=== PATIENT | female | born 1980 | race Caucasian/White ===

== ENCOUNTER 2016-04-07 16:35 | Inpatient (IN) | payer MEDICARE ==
[2016-04-07] MEDS ORDERED: APRESOLINE IV ONE (17:38)
[2016-04-07] MEDS ORDERED: MORPHINE IV ONE ×2 (17:38→19:43)
[2016-04-07] MEDS ORDERED: ZOFRAN IV ONE (17:38)
--- NOTE | 2016-04-07 17:38 | Emergency Department Report ---
ED Chest Pain HPI - General Chief Complaint: Chest Pain Stated Complaint: CHEST PAIN Time Seen by Provider: 04/07/16 17:32 Source: patient, EMS Mode of arrival: Stretcher Limitations: Physical Limitation - History of Present Illness Initial Comments: Patient here reports she has some nausea and vomited last weeks also reported chest pain times one week. She had similar episode in the past. She denies any fever or chills. She reports nausea today. Blood pressure is elevated and patient since she is on clonidine work elevated blood pressure but she has not been able to take it because she's been vomiting. She reports chest pain to mid chest radiating to left chest area without shortness of breath. Pain at 10 out of 10 and feels sharp and stabbing. She also reports that she has some dizziness. Patient has chronic pain to her back and abdomen. Reports that she is on oxycodone. She is also on medication for chronic not nausea and acid reflux. Denies any urinary burning frequency or urgency. Denies any history of heart disease. Blood pressure is elevated at 198/147. MD Complaint: chest pain Onset/Timin -: week(s) Onset: during rest Pain Radiation: none Severity: severe Severity scale (0 -10): 10 Quality: sharp Consistency: intermittent Improves With: nothing Worsens With: nothing Context: other (unknown) re: nausea, vomting, dyspnea. denies: diaphoresis, sense of impending doom Other Symptoms: denies: cough, fever, syncope, rash, acid taste in mouth, leg swelling, palpitations, burping Treatments Prior to Arrival: none Aspirin use within the Past 7 Days: (0) No - Related Data On Oral Contraceptives: No Allergies Allergy/AdvReac Type Severity Reaction Status Date / Time amoxicillin Allergy Anaphylaxis Verified 04/07/16 17:04 enalapril Allergy Anaphylaxis Verified 04/07/16 17:04 ibuprofen AdvReac Unknown Verified 04/07/16 17:04 JAGRUTI score - Jagruti Score Age > 65: (0) No Aspirin use within the Past 7 Days: (0) No 3 or more CAD Risk Factors: (0) No 2 or more Angina events in past 24 hrs: (0) No Known CAD with more than 50% Stenosis: (0) No Elevated Cardiac Markers: (0) No ST Deviation Greater than 0.5mm: (0) No JAGRUTI Score: 0 ED Review of Systems ROS: Stated complaint: CHEST PAIN Other details as noted in HPI Comment: All other systems reviewed and negative Constitutional: denies: chills, fever Eyes: denies: eye pain, eye discharge ENT: denies: ear pain, throat pain, congestion Respiratory: no symptoms reported Cardiovascular: chest pain. denies: palpitations, dyspnea on exertion, edema, syncope Gastrointestinal: nausea. denies: abdominal pain, vomiting, diarrhea, constipation, hematemesis, melena, hematochezia Musculoskeletal: denies: back pain, arthralgia Skin: denies: rash Neurological: denies: headache ED Past Medical Hx - Past Medical History Previous Medical History?: Yes Hx Hypertension: Yes Hx CVA: Yes Hx Seizures: Yes Additional medical history: chronic pain - Surgical History Past Surgical History?: Yes Additional Surgical History: weight loss surgery - Family History Family history: hypertension - Social History Smoking Status: Never Smoker Substance Use Type: None ED Physical Exam - General Limitations: Physical Limitation General appearance: alert, in no apparent distress - Head Head exam: Present: atraumatic, normocephalic, normal inspection - Eye Eye exam: Present: normal appearance, PERRL, EOMI. Absent: periorbital swelling , periorbital tenderness - ENT ENT exam: Present: normal exam, normal orophraynx, mucous membranes moist, TM's normal bilaterally, normal external ear exam - Neck Neck exam: Present: normal inspection, full ROM. Absent: tenderness, meningismus, lymphadenopathy - Respiratory Respiratory exam: Present: normal lung sounds bilaterally. Absent: respiratory distress, chest wall tenderness - Cardiovascular Cardiovascular Exam: Present: normal rhythm, tachycardia, normal heart sounds - Expanded Cardiovascular Exam Expanded Peripheral pulses: 2+: Radial (R), Radial (L), Posterior Tibialis (R), Posterior Tibialis (L), Dorsalis Pedis (R), Dorsalis Pedis (L) - GI/Abdominal GI/Abdominal exam: Present: soft, normal bowel sounds. Absent: distended, tenderness, guarding, rebound, rigid, organomegaly, mass, bruit - Extremities Exam Extremities exam: Present: normal inspection, full ROM, normal capillary refill. Absent: tenderness, pedal edema, joint swelling, calf tenderness - Back Exam Back exam: Present: normal inspection, full ROM. Absent: tenderness, CVA tenderness (R), CVA tenderness (L), muscle spasm, paraspinal tenderness, vertebral tenderness, rash noted - Neurological Exam Neurological exam: Present: alert, oriented X3, normal gait, reflexes normal. Absent: motor sensory deficit - Psychiatric Psychiatric exam: Present: normal affect, normal mood - Skin Skin exam: Present: warm, dry, intact, normal color. Absent: rash ED Course Vital Signs 04/07/16 04/07/16 04/07/16 16:55 16:57 17:00 Temperature 98.6 F Pulse Rate 124 H Respiratory 18 Rate Blood Pressure 198/147 188/147 Blood Pressure [Right] O2 Sat by Pulse 100 97 Oximetry 04/07/16 04/07/16 04/07/16 17:10 17:20 17:30 Temperature Pulse Rate 116 H 119 H 128 H Respiratory 23 23 16 Rate Blood Pressure 188/147 176/136 171/132 Blood Pressure [Right] O2 Sat by Pulse 97 98 97 Oximetry 04/07/16 04/07/16 04/07/16 18:00 18:02 18:03 Temperature Pulse Rate 117 H 128 H Respiratory 19 16 Rate Blood Pressure 187/136 171/132 Blood Pressure [Right] O2 Sat by Pulse 98 Oximetry 04/07/16 04/07/16 04/07/16 18:07 18:30 19:05 Temperature 98.7 F Pulse Rate 136 H 135 H Respiratory 16 25 H 20 Rate Blood Pressure 117/76 Blood Pressure 114/73 [Right] O2 Sat by Pulse 97 99 99 Oximetry - Reevaluation(s) Reevaluation #1: 04/07/16 18:22 After evaluation, patient stable no change in physical findings. Reevaluation #2: 04/07/16 20:01 Patient received morphine in 4 mg increments IV for a total of 8 mg for generalized pain. She also was started on IV fluid at 250 cc an hour. Reevaluation #3: 04/07/16 22:01 Patient stable condition. Hospitalist following patient ED Medical Decision Making - Lab Data Result diagrams: 04/07/16 17:53 04/07/16 17:53 Lab Results 04/07/16 04/07/16 04/07/16 Range/Units 17:40 17:53 17:53 WBC 9.0 (4.5-11.0) K/mm3 RBC 4.04 (3.65-5.03) M/mm3 Hgb 9.0 L (10.1-14.3) gm/dl Hct 29.6 L (30.3-42.9) % MCV 73 L (79-97) fl MCH 22 L (28-32) pg MCHC 30 (30-34) % RDW 20.8 H (13.2-15.2) % Plt Count 545 H (140-440) K/mm3 Lymph % (Auto) 10.9 L (13.4-35.0) % [place] % (Auto) 5.6 (0.0-7.3) % Eos % (Auto) 0.1 (0.0-4.3) % Baso % (Auto) 0.5 (0.0-1.8) % Lymph # 1.0 L (1.2-5.4) K/mm3 [place] # 0.5 (0.0-0.8) K/mm3 Eos # 0.0 (0.0-0.4) K/mm3 Baso # 0.0 (0.0-0.1) K/mm3 Seg Neutrophils % 82.9 H (40.0-70.0) % Seg Neutrophils # 7.4 (1.8-7.7) K/mm3 Sodium 131 L (137-145) mmol/L Potassium 3.7 (3.6-5.0) mmol/L Chloride 91.7 L (98-107) mmol/L Carbon Dioxide 27 (22-30) mmol/L Anion Gap 16 mmol/L BUN 13 (7-17) mg/dL Creatinine 0.7 (0.7-1.2) mg/dL Estimated GFR > 60 ml/min BUN/Creatinine Ratio 18.57 % Glucose 90 (65-100) mg/dL Calcium 8.7 (8.4-10.2) mg/dL Total Bilirubin (0.1-1.2) mg/dL Direct Bilirubin (0-0.2) mg/dL Indirect Bilirubin mg/dL AST (5-40) units/L ALT (7-56) units/L Alkaline Phosphatase (35-129) units/L Troponin T < 0.010 (0.00-0.029) ng/mL Total Protein (6.3-8.2) g/dL Albumin (3.9-5) g/dL Albumin/Globulin Ratio % TSH 2.010 (0.270-4.200) mlU/mL Free T4 1.15 (0.76-1.46) ng/dL HCG, Qual (Negative) 04/07/16 04/07/16 Range/Units 17:53 17:53 WBC (4.5-11.0) K/mm3 RBC (3.65-5.03) M/mm3 Hgb (10.1-14.3) gm/dl Hct (30.3-42.9) % MCV (79-97) fl MCH (28-32) pg MCHC (30-34) % RDW (13.2-15.2) % Plt Count (140-440) K/mm3 Lymph % (Auto) (13.4-35.0) % [place] % (Auto) (0.0-7.3) % Eos % (Auto) (0.0-4.3) % Baso % (Auto) (0.0-1.8) % Lymph # (1.2-5.4) K/mm3 [place] # (0.0-0.8) K/mm3 Eos # (0.0-0.4) K/mm3 Baso # (0.0-0.1) K/mm3 Seg Neutrophils % (40.0-70.0) % Seg Neutrophils # (1.8-7.7) K/mm3 Sodium (137-145) mmol/L Potassium (3.6-5.0) mmol/L Chloride (98-107) mmol/L Carbon Dioxide (22-30) mmol/L Anion Gap mmol/L BUN (7-17) mg/dL Creatinine (0.7-1.2) mg/dL Estimated GFR ml/min BUN/Creatinine Ratio % Glucose (65-100) mg/dL Calcium (8.4-10.2) mg/dL Total Bilirubin 0.7 (0.1-1.2) mg/dL Direct Bilirubin 0.2 (0-0.2) mg/dL Indirect Bilirubin 0.5 mg/dL AST 17 (5-40) units/L ALT 18 (7-56) units/L Alkaline Phosphatase 108 (35-129) units/L Troponin T (0.00-0.029) ng/mL Total Protein 6.4 (6.3-8.2) g/dL Albumin 3.6 L (3.9-5) g/dL Albumin/Globulin Ratio 1.3 % TSH (0.270-4.200) mlU/mL Free T4 (0.76-1.46) ng/dL HCG, Qual Negative (Negative) - EKG Data -: EKG Interpreted by Me Rate: tachycardia - EKG Data Interpretation: no acute changes - Radiology Data Radiology results: pending (chest x-rays) - Medical Decision Making I collaborated with Dr. Martins on patient presentation and management in emergency room. It was decided the patient will be admitted under hospitalist service. ED Course:Patient presents to emergency room with complaints of chest pain. She said this is having chest pain feels and he went several times. She reports that she had ultrasound of her heart rate was normal and platelets to her gastric bypass surgery she had cardiac stress test versus was normal. This was in 2013. Patient reports that her heart rate is was elevated and her blood pressure has been elevated because she is able to keep any food down in her stomach. She says she takes clonidine for hypertension. She says she has chronic nausea for which she is taking Zofran and she is taking Protonix for acid reflux. I discussed with patient her lab work which reveals mild anemia and patient said that she has anemia from her last surgery, vomiting lower 3.6, troponin was normal TSH and free T4 were within normal limits and negative . I discussed with patient that she will be admitted for chest pain and tachycardia. She is in agreement with admission. Chest x-ray is pending and hospitalist swelling patient. Patient was given IV fluid normal saline 1 L , hydralazine 20 mg IV, morphine 8 mg IV in 4 mg increments. She was also given Zofran 4 mg IV. She forcefully for pain. Critical care attestation.: If time is entered above; I have spent that time in minutes in the direct care of this critically ill patient, excluding procedure time. ED Disposition Clinical Impression: Nausea alone, Tachycardia Chest pain Qualifiers: Chest pain type: unspecified Qualified Code(s): R07.9 - Chest pain, unspecified Hypertension Qualifiers: Hypertension type: essential hypertension Qualified Code(s): I10 - Essential ( primary) hypertension Anemia Qualifiers: Anemia type: unspecified type Qualified Code(s): D64.9 - Anemia, unspecified Disposition: OP ADMITTED IP TO THIS HOSP Is pt being admited?: Yes Does the pt Need Aspirin: No Condition: Stable Instructions: Chest Pain (ED), Hypertension (ED)
[2016-04-07] MEDS ORDERED: NACL 0.9% 1000 ML 1,000 ML IV ONE (17:39)
[2016-04-07 18:25] LABS: Anion Gap 16 mmol/L; BUN/Creatinine Ratio 18.57; Blood Urea Nitrogen 13 mg/dL (7-17); Calcium 8.7 mg/dL (8.4-10.2); Carbon Dioxide 27 mmol/L (22-30); Chloride 91.7 mmol/L (98-107); Glucose 90 mg/dL (65-100); Potassium 3.7 mmol/L (3.6-5.0); Sodium 131 mmol/L (137-145)
[2016-04-07 18:26] LABS: Basophils % (Auto) 0.5 % (0.0-1.8); Eosinophils % (Auto) 0.1 % (0.0-4.3); Hematocrit 29.6 % (30.3-42.9); Mean Corpuscular HGB Conc 30 % (30-34); Mean Corpuscular Volume 73 fl (79-97); Platelet Count 545 K/mm3 (140-440); Red Blood Count 4.04 M/mm3 (3.65-5.03)
[2016-04-07 18:29] LABS: Mean Corpuscular Hemoglobin 22 pg (28-32); Red Cell Distribution Width 20.8 % (13.2-15.2)
[2016-04-07 19:19] LABS: Albumin 3.6 g/dL (3.9-5); Albumin/Globulin Ratio 1.3 %; Bilirubin,Direct 0.2 mg/dL (0-0.2); Bilirubin,Indirect 0.5 mg/dL; Bilirubin,Total 0.7 mg/dL (0.1-1.2); Total Protein 6.4 g/dL (6.3-8.2)
[2016-04-07] MEDS ORDERED: APRESOLINE IV PRN (22:59)
[2016-04-07] MEDS ORDERED: TYLENOL PO PRN (23:00)
[2016-04-07] MEDS ORDERED: MILK OF MAGNESIA PO PRN (23:00)
[2016-04-07] MEDS ORDERED: SODIUM CHLORIDE FLUSH SYRINGE 10 ML IV PRN (23:00)
[2016-04-07] MEDS ORDERED: DULCOLAX PR PRN (23:00)
[2016-04-08] MEDS: MORPHINE IV PRN ×4 (01:31→16:08)
[2016-04-08 02:20] LABS: Creatine Kinase MB 1.3 ng/mL (0.0-4.0)
--- NOTE | 2016-04-08 02:21 | History and Physical Report ---
History of Present Illness Date of examination: 04/08/16 Date of admission: 04/07/16 20:23 History of present illness: 35-year-old woman history of hypertension, CVA, seizure, chronic pain comes emergency room with complaint of chest pain. Pain is in the epigastric area ongoing 4 days which she describes as a sharp pain, constant, intensity is 7/10 , no radiation and she cannot identify exacerbating or alleviating factors. She denies shortness of breath, diaphoresis or palpitation, recent travel, OCP, admits to nausea vomiting Patient denies cough, abdominal pain, hematochezia, dysuria, frequency, focal weakness, dysarthria, fever chills, polydipsia polyuria, hot or cold intolerance , easy bruisability, or rash or bleeding from mucosal membrane, rhinorrhea, epistaxis, earache, tinnitus, blurry vision, eye discharge, anxiety, depression. Other review of systems negative PAST SURGICAL HISTORY: Gastric sleeve with revision, cholecystectomy, tubal ligation SOCIAL HISTORY: Denies alcohol, tobacco, drugs FAMILY HISTORY: Hypertension Medications and Allergies Allergies Allergy/AdvReac Type Severity Reaction Status Date / Time amoxicillin Allergy Anaphylaxis Verified 04/07/16 17:04 enalapril Allergy Anaphylaxis Verified 04/07/16 17:04 ibuprofen AdvReac Unknown Verified 04/07/16 17:04 Home Medications Medication Instructions Recorded Confirmed Last Taken Type Clonidine HCl [Catapres] 0.3 mg PO BID 04/07/16 04/07/16 Unknown History Metoclopramide HCl [Reglan TAB] 5 mg PO BID 04/07/16 04/07/16 Unknown History Ondansetron [Zofran TAB] 8 mg PO TID 04/07/16 04/07/16 Unknown History Zolpidem [Ambien] 5 mg PO QHS PRN 04/07/16 04/07/16 Unknown History levETIRAcetam [Keppra TAB] 750 mg PO BID 04/07/16 04/07/16 Unknown History oxyCODONE /ACETAMINOPHEN [Percocet 1 tab PO TID 04/07/16 04/07/16 Unknown History 5/325] Pantoprazole [Protonix] 40 mg PO BID 04/08/16 04/08/16 Unknown History tiZANidine [Zanaflex] 4 mg PO BID 04/08/16 04/08/16 Unknown History Active Meds: Active Medications Acetaminophen (Tylenol) 650 mg PO Q4H PRN PRN Reason: Pain MILD(1-3)/Fever >100.5/PALACIOS Bisacodyl (Dulcolax) 10 mg MA QDAY PRN PRN Reason: Constipation unrelieved by MOM Hydralazine HCl (Apresoline) 5 mg IV Q6H PRN PRN Reason: Hypertension Magnesium Hydroxide (Milk Of Magnesia) 30 ml PO Q4H PRN PRN Reason: Constipation Morphine Sulfate (Morphine) 2 mg IV Q4H PRN PRN Reason: Pain, Moderate (4-6) Last Admin: 04/08/16 01:31 Dose: 2 mg Ondansetron HCl (Zofran) 4 mg IV Q8H PRN PRN Reason: N/V unrelieved by Reglan Sodium Chloride (Sodium Chloride Flush Syringe 10 Ml) 10 ml IV PRN PRN PRN Reason: LINE FLUSH Exam - Physical Exam Narrative exam: Gen. appearance: Patient lying in bed, no apparent distress HEENT: Normocephalic, atraumatic, pupils equally round and reactive to light, extraocular movement intact, and no sclericterus,. No JVD or thyromegaly or nodule,neck supple, no carotid bruit ,mucous membranes moist, no exudate or erythema Heart: S1, S2, regular rate and rhythm Lungs: Clear to auscultation bilaterally, breathing comfortable Abdomen: Positive bowel sounds, nontender, nondistended, no organomegaly Extremity: No edema, cyanosis, clubbing Skin: No rash, nodules, warm, dry Neuro: Oriented 3, cranial nerves II-12 intact, speech is fluent, motor and sensory intact - Constitutional Vitals: Temp Pulse Resp BP Pulse Ox 98.7 F 117 H 15 140/106 99 04/07/16 19:05 04/08/16 00:00 04/08/16 00:00 04/08/16 00:00 04/08/16 00:00 Results - Labs CBC & Chem 7: 04/07/16 17:53 04/07/16 17:53 - Imaging and Cardiology EKG: image reviewed Chest x-ray: image reviewed Assessment and Plan Hypertensive urgency Chest pain Seizure History of CVA Chronic pain Admits medicine Start IV hydralazine as needed for blood pressure control Check cardiac enzymes, lipid profile and obtain a stress test Start IV morphine, DVT prophylaxis, appropriate continue outpatient medications
--- NOTE | 2016-04-08 04:27 | Admit Criteria Form ---
Admission Criteria Documentation: CARDIOLOGY GRG Clinical Indications for Admission to Inpatient Care ( Place 'X' for any and all applicable criteria): Hospital admission is needed for appropriate care of the patient because of ANY ONE of the following (1): [ ] I. Hemodynamic instability as indicated by ALL of the following (1)(2)(3) (4)(5) [ ]a) Vital signs or other findings not as expected for chronic patient condition or baseline [ ]b) Instability indicated by ANY ONE of the following: [ ]i) Hypotension [ ]ii) Symptomatic Tachycardia unresponsive to treatment ( e.g., analgesia, fluids, sedation as indicated) [ ]iii) Inadequate perfusion indicated by ANY ONE of the following: [ ] 1) Lactic acidosis (> 2 mmol/L) [ ] 2) New abnormal capillary refill (> 3 seconds) [ ] 3) Reduced urine output [ ] 4) New altered mental status [ ]iv) Orthostatic vital sign changes unresponsive to treatment (e.g., fluids) [ ]v) IV inotropic or vasopressor medication required to maintain adequate blood pressure or perfusion [ ] II. Severe heart failure as indicated by ANY ONE of the following(17)(18) [ ]a) Respiratory distress [ ]b) Hypotension [ ]c) Anasarca (refractory to outpatient therapy) [ ]d) Cardiac arrhythmias of immediate concern [ ]e) Myocardial ischemia [ ] III. Cardiac arrhythmias or findings of immediate concern indicated by ANY ONE of the following (19)(20): [ ] a) Heart rhythms that are inherently dangerous or unstable indicated by ANY ONE of the following (21)(22)(23): [ ] i) Resuscitated ventricular fibrillation or cardiac arrest [ ] ii) Ventricular escape rhythm [ ] iii) Sustained ventricular tachycardia (30 seconds or more of ventricular rhythm at greater than 100 beats per minute) [ ] iv) Nonsustained ventricular tachycardia and ANY ONE of the following: [ ] 1) Suspected cardiac ischemia as cause or consequence of ventricular tachycardia [ ] 2) In setting of acute myocarditis [ ] b) Unstable cardiac conduction defects indicated by ANY ONE of the following(23)(24)(25) [ ] i) Type II second-degree atrioventricular block [ ]ii) Third-degree atrioventricular block [ ]iii) New-onset left bundle branch block with suspected myocardial ischemia [ ]c) Any heart rhythm and ANY ONE of the following (21)(22)(26)(27) (28) [ ] i) Continuous long-term ECG monitoring needed (e.g., initiation of drug requiring monitoring for more than 24 hours) [ ] ii) Patient has automatic implanted cardioverter defibrillator that is repeatedly firing, malfunctioning, or in need of immediate adjustment of settings beyond the scope of ambulatory or observation care [ ]d) Heart rhythms of concern due to ANY ONE of the following: [ ] i) Hypotension [ ] ii) Respiratory distress [ ] iii) Association with other significant symptoms (e.g., bradycardia with syncope or ongoing dizziness, supraventricular tachycardia with chest pain (14)(15)(17) [ ] IV. Monitoring for cardiac contusion beyond the scope of observation care needed [A](30)(31)(32) [ ] V. Surgical or device complication (e.g., valve replacement complication , pacemaker dysfunction) (35)(41)(44)(45)(46) [ ] . Inpatient palliative care needed. [B](49) Also use Inpatient Palliative Care Criteria [ ] VII. Nonbacterial thrombotic (marantic) endocarditis (36)(43)(47)(48) [X ] VIII. Cardiology condition, symptom, or finding for which emergency and observation care has failed or are not considered appropriate. [ ] IX. Acute valvular disease requiring inpatient as indicated by ANY ONE of the following (41) [ ]a) Acute valvular regurgitation (42) [ ]b) Noninfectious valvulitis (43) [ ]c) Obstructive valve thrombosis [ ]d) Paravalvular leak [ ]e) Other significant valvular disorder remaining after emergency or observation level of care (as appropriate) [ ]X. Pericardial disease requiring inpatient treatment as indicated by ANY ONE of the following (33)(34)(35)(36)(37) [ ]a) Suspected tamponade (38)(39)(40) [ ]b) Hemopericardium [ ]c) Other significant pericardial disorder remaining after emergency or observation level of care (as appropriate) [ ] XI. Cardiac ischemia beyond scope of emergency and observation care. [ ] XII. Hypertension requiring inpatient treatment as indicated by ANY ONE of the following (6)(7)(8) [ ]a) SBP greater than 220 mm Hg or DBP greater than 120 mmHg despite treatment [ ]b) SBP greater than 140 mm Hg or DBP greater than 100 mm Hg with evidence of acute end organ damage as indicated by ANY ONE of the following [ ] i) Altered mental status [ ] ii) Acute renal failure as indicated by new onset of ANY ONE of the following (9)(10)(11)(12)(13) [ ]1) 3-fold rise in serum creatinine from baseline [ ]2) Serum creatinine greater than 4 mg/dL ( 354 micromoles/L) with acute rise greater than 0.5 mg/dL (44.2 micromoles/L) [ ]3) Reduction of more than 75% in estimated glomerular filtration rate from baseline [ ]4) Estimated glomerular filtration rate less than 35 mL/min/1.73m2 (0.59 mL/sec/1.73m2) in child up to 18 years of age [ ]5) Cessation of urine output indicated by ALL of the following [ ]A. Adequate volume status [ ]B. Inadequate urine output as indicated by ANY ONE of the following [ ]a. Urine output less than 0.3 mL/kg/hr for 24 hours [ ]b. Anuria (urine output less than 0.1 mL/kg/hr) for 12 hours [ ] iii) Aortic dissection [ ] iv) Myocardial Ischemia [ ] v) Left ventricular heart failure [ ]vi) Retinal Hemorrhage [ ]vii) Other significant finding [ ]c) Hypertension in child requiring inpatient treatment as indicated by ALL of the following(14)(15)(16) [ ] i) Outpatient treatment not effective, not available, or not appropriate [ ]ii) SBP or DBP greater than 95th percentile for age [ ]iii) Evidence of acute end organ damage as indicated by ANY ONE of the following [ ]1) Altered mental status [ ]2) Acute renal failure as indicated by new onset of ANY ONE of the following(9)(10)(11)(12)(13) [ ]A. 3-fold rise in serum creatinine from baseline [ ]B. Serum creatinine greater than 4 mg/dL (354 micromoles/L) with acute rise greater than 0.5 mg/dL (44.2 micromoles/L) [ ]C. Reduction of more than 75% in estimated glomerular filtration rate from baseline [ ]D. Estimated glomerular filtration rate less than 35 mL/min/1.73m2 (0.59 mL/sec/1.73m2) in child up to 18 years of age [ ]E. Cessation of urine output indicated by ALL of the following [ ]a. Adequate volume status [ ]b. Inadequate urine output as indicated by ANY ONE of the following [ ]i) Urine output less than 0.3 mL/kg/hr for 24 hours [ ]ii) Anuria ( urine output less than 0.1 mL/kg/hr) for 12 hours [ ]3) Severe headache [ ]4) Visual disturbance [ ]5) Retinal hemorrhage [ ]6) Other significant finding [ ]XIII. Complications of transplanted heart indicated by ANY ONE of the following(61): [ ]a) Acute graft rejection requiring inpatient management (eg, intravenous immunosuppression)(62)(63) [ ]b) Acute graft heart failure indicated by ANY ONE of the following(64): [ ]i) Hemodynamic instability [ ]ii) Cardiac arrhythmias of immediate concern [ ]iii) Pulmonary edema that is very severe (eg, mechanical ventilation needed, imminent or likely, need for 100% oxygen to keep oxygen saturation above 90%) [ ]iv) Pulmonary edema that is persistent as indicated by ALL of the following: [ ]1) New need for oxygen therapy to keep oxygen saturation above 90% (or increased FiO2 need from baseline) [ ]2) Has not improved sufficiently with emergency department or observation care IV diuretics or other heart failure treatments[E] [ ]v) Altered mental status that is severe or persistent [ ]vi) Increased creatinine (new on laboratory test) with reduction of more than 50% in estimated glomerular filtration rate from baseline [ ]vii) Progressively (ongoing) rising creatinine (known from past laboratory test) with reduction of more than 25% in estimated glomerular filtration rate from baseline [ ]viii) Acute renal failure [ ]ix) Acute peripheral ischemia (eg, examination shows pulseless, cool, mottled, or cyanotic extremity) [ ]x) Pulmonary artery catheter monitoring needed [ ]xi) Other sign or symptom of heart failure requiring inpatient treatment (ie, too severe or not responsive to outpatient and observation care treatment) [ ]c) Infection requiring inpatient management (eg, Hemodynamic instability, need for intravenous antimicrobial treatment)(66)(67)(68)(69)(70) [ ]d) Cardiac allograft vasculopathy requiring inpatient management ( eg evidence of cardiac ischemia)(71) [ ]e) Other complication of transplanted heart (eg, stroke, severe pulmonary hypertension, severe valvular dysfunction) requiring inpatient management(72) The original [facility] content created by [facility] has been revised. The portions of the content which have been revised are identified through the use of italic text or in bold, and [facility] has neither reviewed nor approved the modified material. All other unmodified content is copyright [facility] [employer]. Please see references footnoted in the original [facility] edition 2016 Admission Criteria Met: Yes
[2016-04-08 05:33] LABS: Anion Gap 15 mmol/L; BUN/Creatinine Ratio 22.85; Blood Urea Nitrogen 16 mg/dL (7-17); Calcium 8.2 mg/dL (8.4-10.2); Carbon Dioxide 26 mmol/L (22-30); Chloride 97.6 mmol/L (98-107); Glucose 87 mg/dL (65-100); Potassium 3.9 mmol/L (3.6-5.0); Sodium 135 mmol/L (137-145)
[2016-04-08 05:43] LABS: Basophils % (Auto) 0.5 % (0.0-1.8); Eosinophils % (Auto) 0.5 % (0.0-4.3); Hematocrit 25.1 % (30.3-42.9); Hemoglobin 7.7 gm/dl (10.1-14.3); Mean Corpuscular HGB Conc 31 % (30-34); Mean Corpuscular Volume 73 fl (79-97); Platelet Count 474 K/mm3 (140-440); Red Blood Count 3.43 M/mm3 (3.65-5.03); White Blood Count 8.4 K/mm3 (4.5-11.0)
[2016-04-08 06:00] LABS: Mean Corpuscular Hemoglobin 23 pg (28-32); Red Cell Distribution Width 21.4 % (13.2-15.2)
[2016-04-08] MEDS: ZOFRAN IV PRN ×2 (07:01→22:22)
--- NOTE | 2016-04-08 07:16 | XRay Report ---
ROUTINE CHEST, TWO VIEWS: HISTORY: chest pain. The trachea, heart, mediastinal contour, lung mayorga and bony thorax are unremarkable. IMPRESSION: Unremarkable chest x-ray.
[2016-04-08 08:39] LABS: Creatine Kinase MB 1.3 ng/mL (0.0-4.0)
[2016-04-08] MEDS ORDERED: LEXISCAN IV ONE ×2 (08:45→09:06)
[2016-04-08] MEDS ORDERED: AMBIEN PO PRN (15:30)
[2016-04-08] MEDS ORDERED: NON-FORMULARY (Clonidine Hcl [Catapres] 0.3 MG) PO SCH (15:30)
--- NOTE | 2016-04-08 15:34 | Progress Note ---
Assessment and Plan Assessment and plan: 1. Chest pain trops neg, fup Stress test 2. Accelerated htn restart home meds, continue IV hydralazine prn History Interval history: Normal complaint denies headache denies chest pain Hospitalist Physical - Physical exam Narrative exam: General: Patient appears well in no distress HEENT: MMM, EOMI cardiac: S1-S2 heard lungs: clear to auscultation, abdomen: soft, nontender, nondistended bowel sounds positive extremities: no edema clubbing or cyanosis Skin: no rash or lesion Neuro: no focal deficit Psych: appropriate behavior and mood, cognition intact - Constitutional Vitals: Temp Pulse Resp BP Pulse Ox 98.7 F 104 H 15 150/117 99 04/07/16 19:05 04/08/16 12:50 04/08/16 12:50 04/08/16 12:50 04/08/16 12:50 Results - Labs CBC & Chem 7: 04/08/16 04:56 04/08/16 04:56 Labs: Laboratory Last Values WBC 8.4 K/mm3 (4.5-11.0) 04/08/16 04:56 RBC 3.43 M/mm3 (3.65-5.03) L 04/08/16 04:56 Hgb 7.7 gm/dl (10.1-14.3) L 04/08/16 04:56 Hct 25.1 % (30.3-42.9) L 04/08/16 04:56 MCV 73 fl (79-97) L 04/08/16 04:56 MCH 23 pg (28-32) L 04/08/16 04:56 MCHC 31 % (30-34) 04/08/16 04:56 RDW 21.4 % (13.2-15.2) H 04/08/16 04:56 Plt Count 474 K/mm3 (140-440) H 04/08/16 04:56 Lymph % (Auto) 21.4 % (13.4-35.0) 04/08/16 04:56 [place] % (Auto) 9.1 % (0.0-7.3) H 04/08/16 04:56 Eos % (Auto) 0.5 % (0.0-4.3) 04/08/16 04:56 Baso % (Auto) 0.5 % (0.0-1.8) 04/08/16 04:56 Lymph # 1.8 K/mm3 (1.2-5.4) 04/08/16 04:56 [place]on # 0.8 K/mm3 (0.0-0.8) 04/08/16 04:56 Eos # 0.0 K/mm3 (0.0-0.4) 04/08/16 04:56 Baso # 0.0 K/mm3 (0.0-0.1) 04/08/16 04:56 Seg Neutrophils % 68.5 % (40.0-70.0) 04/08/16 04:56 Seg Neutrophils # 5.7 K/mm3 (1.8-7.7) 04/08/16 04:56 D-Dimer 141.20 ng/mlDDU (0-234) 04/07/16 21:47 Sodium 135 mmol/L (137-145) L 04/08/16 04:56 Potassium 3.7 mmol/L (3.6-5.0) 04/07/16 17:53 Chloride 91.7 mmol/L (98-107) L 04/07/16 17:53 Carbon Dioxide 26 mmol/L (22-30) 04/08/16 04:56 Anion Gap 16 mmol/L 04/07/16 17:53 BUN 16 mg/dL (7-17) 04/08/16 04:56 Creatinine 0.7 mg/dL (0.7-1.2) 04/08/16 04:56 Estimated GFR > 60 ml/min 04/08/16 04:56 BUN/Creatinine Ratio 22.85 % 04/08/16 04:56 Glucose 87 mg/dL (65-100) 04/08/16 04:56 Calcium 8.2 mg/dL (8.4-10.2) L 04/08/16 04:56 Total Bilirubin 0.7 mg/dL (0.1-1.2) 04/07/16 17:53 Direct Bilirubin 0.2 mg/dL (0-0.2) 04/07/16 17:53 Indirect Bilirubin 0.5 mg/dL 04/07/16 17:53 AST 17 units/L (5-40) 04/07/16 17:53 ALT 18 units/L (7-56) 04/07/16 17:53 Alkaline Phosphatase 108 units/L (35-129) 04/07/16 17:53 Total Creatine Kinase 29 units/L (30-135) L 04/08/16 07:48 CK-MB (CK-2) 1.3 ng/mL (0.0-4.0) 04/08/16 07:48 CK-MB (CK-2) Rel Index 4.4 (0-4) H 04/08/16 07:48 Troponin T < 0.010 ng/mL (0.00-0.029) 04/08/16 13:18 Total Protein 6.4 g/dL (6.3-8.2) 04/07/16 17:53 Albumin 3.6 g/dL (3.9-5) L 04/07/16 17:53 Albumin/Globulin Ratio 1.3 % 04/07/16 17:53 Triglycerides 33 mg/dL (2-149) 04/07/16 23:33 Cholesterol 127 mg/dL (50-199) 04/07/16 23:33 LDL Cholesterol Direct 26 mg/dL (50-130) L 04/07/16 23:33 HDL Cholesterol 95 mg/dL (40-59) H 04/07/16 23:33 Cholesterol/HDL Ratio 1.33 % 04/07/16 23:33 TSH 2.010 mlU/mL (0.270-4.200) 04/07/16 17:40 Free T4 1.15 ng/dL (0.76-1.46) 04/07/16 17:40 HCG, Qual Negative (Negative) 04/07/16 17:53
[2016-04-08] MEDS: CATAPRES PO SCH ×2 (16:08→22:13)
[2016-04-08] MEDS: PERCOCET 5/325 PO SCH (20:43)
[2016-04-08] MEDS ORDERED: NON-FORMULARY (Levetiracetam [Keppra Tab] 750 MG) PO SCH (22:00)
[2016-04-08] MEDS: KEPPRA PO SCH (22:13)
[2016-04-08] MEDS: ZANAFLEX PO SCH (22:16)
[2016-04-08] MEDS: PROTONIX PO SCH (22:16)
[2016-04-09] MEDS ORDERED: NACL 0.9% 1000 ML 1,000 ML IV ONE ×2 (00:21→02:28)
--- NOTE | 2016-04-09 02:35 | Treadmill Report ---
NUCLEAR STUDY REASON FOR STUDY: Palpitations, chest pain, and elevated blood pressure. IMAGING PROTOCOL: The patient received 10 mCi of Technetium 99m Tetrofosmin for resting image and 28 mCi of Technetium 99m Tetrofosmin for stress imaging. The imaging for the whole procedure was completed 30-90 minutes following the initial injection of Technetium 99m tetrofosmin. The SPECT imaging in the 180 degree arc was performed in the right anterior oblique projection. Computerized reconstruction of the images was performed for analysis. IMAGING RESULTS: Normal cavity size from stress to rest. Normal distribution of radionuclide in the anterior, inferior, septal, and apical regions. Gated SPECT, EF of 61% with no wall motion abnormalities. The patient infused Lexiscan with no EKG changes. SUMMARY: 1. Negative Lexiscan EKG. 2. Normal rest and stress myocardial perfusion scan. No significant stress ischemia. No wall motion abnormality. Gated SPECT, EF 61%. JOB# [id number] ELINA/JUAN JOSÉ
[2016-04-09] MEDS: MORPHINE IV PRN ×2 (06:12→12:33)
[2016-04-09] MEDS: PERCOCET 5/325 PO SCH ×2 (07:59→14:15)
[2016-04-09] MEDS: KEPPRA PO SCH (09:22)
[2016-04-09] MEDS: CATAPRES PO SCH (09:24)
[2016-04-09] MEDS: PROTONIX PO SCH (09:24)
[2016-04-09] MEDS: ZANAFLEX PO SCH (09:24)
[2016-04-09] MEDS: ZOFRAN IV PRN (09:29)
[2016-04-09 14:21] VITALS: BP 105/69
--- NOTE | 2016-04-09 14:31 | Discharge Summary ---
Providers - Providers Date of Admission: 04/07/16 20:23 Attending physician: SIMA BENNETT MD 04/07/16 Consult to Cardiac Rehabilitation [CONS] Routine Reason For Exam: Phase I Primary care physician: CLINICAL STATISTICS MANAGER Hospitalization Condition: Stable Hospital course: 35F who ran out of her medications for htn who presented with accelerated htn and chest pain, she was put on appropriate BP meds after which her BP normalized , she went on to have a stress test that was negative. She was discharged in improved condition, she was counseled that she can go to urgent care immediately emergency appointment today she does not run out of medications in the future. Discharge Diagnosis Accelerated HTN Chest pain Disposition: DISCHARGED TO HOME OR SELFCARE Time spent for discharge: 35 minutes Core Measure Documentation - Palliative Care Palliative Care/ Comfort Measures: Not Applicable - Core Measures Any of the following diagnoses?: none Exam - Constitutional Vitals: Temp Pulse Resp BP Pulse Ox 97.8 F 80 15 105/69 98 04/09/16 13:25 04/09/16 14:00 04/09/16 14:00 04/09/16 14:00 04/09/16 13:46 General appearance: Present: no acute distress, well-nourished - EENT Eyes: Present: PERRL ENT: hearing intact, clear oral mucosa - Neck Neck: Present: supple, normal ROM - Respiratory Respiratory effort: normal Respiratory: bilateral: CTA - Cardiovascular Heart Sounds: Present: S1 & S2. Absent: rub, click - Extremities Extremities: pulses symmetrical, No edema Peripheral Pulses: within normal limits - Abdominal General gastrointestinal: Present: soft, non-tender, non-distended, normal bowel sounds Female genitourinary: Present: normal - Integumentary Integumentary: Present: clear, warm, dry - Musculoskeletal Musculoskeletal: gait normal, strength equal bilaterally - Psychiatric Psychiatric: appropriate mood/affect, intact judgment & insight - Neurologic Neurologic: CNII-XII intact, moves all extremities Plan Follow up with: PRIMARY CARE, [Primary Care Provider] - 7 Days Prescriptions: Zolpidem [Ambien] 5 mg PO QHS PRN #30 tablet PRN Reason: Sleep Clonidine HCl [Catapres] 0.3 mg PO BID #60 tablet levETIRAcetam [Keppra TAB] 750 mg PO BID #60 tablet Ondansetron [Zofran Odt] 4 mg PO Q6H PRN #60 tab.rapdis PRN Reason: Nausea oxyCODONE /ACETAMINOPHEN [Percocet 5/325 mg] 1 tab PO TID #30 tablet Pantoprazole [Protonix TAB] 40 mg PO BID #60 tablet tiZANidine [Zanaflex] 4 mg PO BID #60 tablet
== END 2016-04-09 16:20 | disposition home or self-care (01) | DRG 305 ==
LOC: ED 16:35 → 4A 20:23 → CC1 04-08 06:50
PROVIDERS: ADMIT Internal Medicine; ATTEND Internal Medicine
DX: I16.0 Hypertensive urgency (principal); R07.9 Chest pain, unspecified; R00.0 Tachycardia, unspecified; G89.29 Other chronic pain; M54.9 Dorsalgia, unspecified; R10.9 Unspecified abdominal pain; I10 Essential (primary) hypertension; D64.9 Anemia, unspecified; R55 Syncope and collapse; Z88.1 Allergy status to other antibiotic agents; Z88.8 Allergy status to other drugs, medicaments and biological substances; Z86.73 Personal history of transient ischemic attack (TIA), and cerebral infarction without residual deficits; Z82.49 Family history of ischemic heart disease and other diseases of the circulatory system; Z90.49 Acquired absence of other specified parts of digestive tract; Z98.51 Tubal ligation status
CPT/HCPCS: 36415; 71020; 78452; 80048; 80061; 80074; 82550; 82553; 84439; 84443; 84484; 84703; 85025; 85379; 93005; 93010; 93017; 96361; 96374; 96375; 96376; A9502; J0360; J2270; J2405; J2785; J7030

== ENCOUNTER 2016-07-10 21:12 | Inpatient (IN) | payer MEDICARE ==
[2016-07-10 22:04] LABS: Hemoglobin 9.8 gm/dl (10.1-14.3); Mean Corpuscular HGB Conc 32 % (30-34); Mean Corpuscular Volume 71 fl (79-97); Platelet Count 409 K/mm3 (140-440); Red Blood Count 4.36 M/mm3 (3.65-5.03); White Blood Count 10.4 K/mm3 (4.5-11.0)
[2016-07-10 22:06] LABS: Mean Corpuscular Hemoglobin 22 pg (28-32)
[2016-07-10 22:13] LABS: INR 0.99 (0.87-1.13); Partial Thromboplastin Time 33.1 Sec. (24.2-36.6)
[2016-07-10 22:17] LABS: Anion Gap 17 mmol/L; Blood Urea Nitrogen 19 mg/dL (7-17); Calcium 8.9 mg/dL (8.4-10.2); Carbon Dioxide 26 mmol/L (22-30); Chloride 95.6 mmol/L (98-107); Glucose 98 mg/dL (65-100); Potassium 3.8 mmol/L (3.6-5.0); Sodium 135 mmol/L (137-145)
--- NOTE | 2016-07-10 22:38 | Cat Scan Report ---
FINAL REPORT PROCEDURE: CT HEAD/BRAIN WO CON TECHNIQUE: Computerized tomography of the head was performed without contrast material. HISTORY: BLURRY VISION / HX CVA COMPARISON: No prior studies are available for comparison. FINDINGS: Brain: No evidence of intracranial hemorrhage. No parenchymal hemorrhage, mass lesions or mass effect are seen. No abnormal extraxial fluid collects or masses are seen. There is a well-defined oval area of decreased density medial aspect left thalamus consistent with the old lacunar infarct. Brain density otherwise appears normal. Ventricles: Ventricles are normal size and are midline. Bone Windows: No evidence of skull fracture. Paranasal sinuses: Clear Mastoid air cells: Clear IMPRESSION: Old lacunar infarct left thalamus. No other intracranial abnormalities are identified. The remainder the exam is unremarkable. If symptoms persist or worsen consider follow-up CT scan or MRI for further evaluation.
[2016-07-10 22:52] LABS: Basophils % (Manual) 0 % (0.0-1.8); Blastocytes % (Manual) 0 %; Eosinophils % (Manual) 0 % (0.0-4.3)
[2016-07-10 22:53] LABS: Anisocytosis 1+; Diff Status Complete; Elliptocytes 1+; Hypochromasia 1+; Platelet Estimate Consistent w Auto
[2016-07-11] MEDS ORDERED: ZOFRAN IV ONE (07:24)
[2016-07-11] MEDS ORDERED: MORPHINE IV ONE (07:24)
[2016-07-11] MEDS ORDERED: NACL 0.9% 1000 ML 1,000 ML IV ONE (07:24)
--- NOTE | 2016-07-11 07:29 | Emergency Department Report ---
ED Chest Pain HPI - General Chief Complaint: Syncope Stated Complaint: VOMITING, SHORTNESS OF BREATH Time Seen by Provider: 07/11/16 06:58 Source: patient Mode of arrival: Ambulatory Limitations: No Limitations - History of Present Illness Initial Comments: Patient is a 36-year-old female with a history of hypertension, seizure disorder , CVA who presents with chest pain and syncope. Associated nausea and vomiting. She reports she vomited throughout the day not related to food intake. Patient reports she's had 4 days of intermittent sharp chest pain alleviated and exacerbated by nothing patient then reports she had an episode of syncope while grocery shopping yesterday. Patient reports she did have an aura and knows when she is about to pass out she has ringing in the ears and blurry vision. Patient reports this has been going on for the last year to 2 years, she has been seeing Dr. Hope the [facility] plans staff officer with no diagnosis except for hypertension. Otherwise no fevers, chills, dizziness, headaches, shortness of breath, abdominal pain, trauma, travel, or sick contacts. She takes Keppra 1500 mg twice a day, clonidine 0.6 mg daily. Severity scale (0 -10): 6 - Related Data Home Medications Medication Instructions Recorded Confirmed Last Taken Ondansetron [Zofran TAB] 8 mg PO Q8HR PRN 06/15/16 07/11/16 Unknown cloNIDine [Catapres] 0.6 mg PO BID 06/15/16 07/11/16 Unknown levETIRAcetam [Keppra ORAL LIQ] 1,500 mg PO BID 06/15/16 07/11/16 Unknown Previous Rx's Medication Instructions Recorded Last Taken Type Pantoprazole [Protonix TAB] 80 mg PO QDAY #30 tablet 06/18/16 Unknown Rx Zolpidem [Ambien] 10 mg PO QHS #30 tablet 06/18/16 Unknown Rx oxyCODONE /ACETAMINOPHEN [Percocet 1 tab PO Q6H PRN #30 tablet 06/18/16 Unknown Rx 5/325 mg] Allergies Allergy/AdvReac Type Severity Reaction Status Date / Time amoxicillin Allergy Anaphylaxis Verified 04/07/16 17:04 enalapril Allergy Anaphylaxis Verified 04/07/16 17:04 hydralazine Allergy Hives Verified 06/15/16 14:14 peach Allergy Unknown Verified 05/28/16 11:12 tramadol Allergy Rash Verified 07/10/16 21:31 ibuprofen AdvReac Unknown Verified 04/07/16 17:04 JAGRUTI score - Jagruti Score Age > 65: (0) No Aspirin use within the Past 7 Days: (0) No 3 or more CAD Risk Factors: (0) No 2 or more Angina events in past 24 hrs: (0) No Known CAD with more than 50% Stenosis: (0) No Elevated Cardiac Markers: (0) No ST Deviation Greater than 0.5mm: (0) No JAGRUTI Score: 0 ED Review of Systems ROS: Stated complaint: VOMITING, SHORTNESS OF BREATH Other details as noted in HPI Comment: All other systems reviewed and negative ED Past Medical Hx - Past Medical History Previous Medical History?: Yes Hx Hypertension: Yes Hx CVA: Yes (residual left-sided weakness) Hx Congestive Heart Failure: No Hx Diabetes: No Hx Seizures: Yes Hx Asthma: No Hx COPD: No Additional medical history: chronic pain, Back - Nerve pain, leg weakness/pain, - Surgical History Past Surgical History?: Yes Hx Cholecystectomy: Yes Additional Surgical History: weight loss surgery Bypass and sleeve. c-sec, J- Tube - Social History Smoking Status: Never Smoker Substance Use Type: None - Medications Home Medications: Home Medications Medication Instructions Recorded Confirmed Last Taken Type Ondansetron [Zofran TAB] 8 mg PO Q8HR PRN 06/15/16 07/11/16 Unknown History cloNIDine [Catapres] 0.6 mg PO BID 06/15/16 07/11/16 Unknown History levETIRAcetam [Keppra ORAL LIQ] 1,500 mg PO BID 06/15/16 07/11/16 Unknown History Pantoprazole [Protonix TAB] 80 mg PO QDAY #30 tablet 06/18/16 07/11/16 Unknown Rx Zolpidem [Ambien] 10 mg PO QHS #30 tablet 06/18/16 07/11/16 Unknown Rx oxyCODONE /ACETAMINOPHEN [Percocet 1 tab PO Q6H PRN #30 tablet 06/18/16 Unknown Rx 5/325 mg] ED Physical Exam - General Limitations: No Limitations General appearance: alert, in no apparent distress - Head Head exam: Present: atraumatic, normocephalic - Eye Eye exam: Present: normal appearance - ENT ENT exam: Present: mucous membranes moist - Neck Neck exam: Present: normal inspection - Respiratory Respiratory exam: Present: normal lung sounds bilaterally. Absent: respiratory distress, wheezes, rales, rhonchi - Cardiovascular Cardiovascular Exam: Present: normal rhythm, tachycardia, normal heart sounds. Absent: regular rate, systolic murmur, diastolic murmur, rubs, gallop - GI/Abdominal GI/Abdominal exam: Present: soft, normal bowel sounds. Absent: distended, tenderness, guarding, rebound - Extremities Exam Extremities exam: Present: normal inspection - Back Exam Back exam: Present: normal inspection, full ROM - Neurological Exam Neurological exam: Present: alert, oriented X3, CN II-XII intact. Absent: motor sensory deficit - Psychiatric Psychiatric exam: Present: normal affect, normal mood - Skin Skin exam: Present: warm, dry, intact, normal color. Absent: rash ED Course Vital Signs 07/10/16 07/11/16 07/11/16 21:31 02:33 06:34 Temperature 99.6 F 98.6 F Pulse Rate 112 H 128 H 92 H Respiratory 14 16 22 Rate Blood Pressure 174/139 190/147 Blood Pressure 171/133 [Left] O2 Sat by Pulse 100 100 100 Oximetry 07/11/16 07/11/16 07/11/16 06:35 08:45 08:53 Temperature Pulse Rate 92 H 80 74 Respiratory 16 Rate Blood Pressure 189/142 Blood Pressure 152/120 [Left] O2 Sat by Pulse 100 Oximetry 07/11/16 07/11/16 07/11/16 09:35 09:45 09:50 Temperature Pulse Rate 80 76 77 Respiratory 16 18 18 Rate Blood Pressure Blood Pressure 160/118 183/132 180/129 [Left] O2 Sat by Pulse 98 100 100 Oximetry 07/11/16 10:00 Temperature Pulse Rate 90 Respiratory 18 Rate Blood Pressure Blood Pressure 178/127 [Left] O2 Sat by Pulse 100 Oximetry ED Medical Decision Making - Lab Data Result diagrams: 07/10/16 21:54 07/10/16 21:54 - EKG Data -: EKG Interpreted by Me (time 21:17) EKG shows normal: axis (normal axis), intervals (QTC 466 ms), ST-T waves (no ST/ T changes, no STEMI) Rate: tachycardia (sinus tach at 10 3 bpm) - Medical Decision Making Case d/w Dr Hope cardiology team, will start cardene to control BP, will see on consult Pt admitted to ICU Critical care attestation.: If time is entered above; I have spent that time in minutes in the direct care of this critically ill patient, excluding procedure time. ED Disposition Clinical Impression: Chest pain, Syncope, Hypertension Disposition: OP ADMITTED IP TO THIS HOSP Is pt being admited?: Yes Condition: Serious
[2016-07-11 07:44] LABS: Bacteria,Urine 2+ /HPF (Negative); Bilirubin,Urine NEG (Negative); Blood,Urine NEG (Negative); Ketones,Urine TR mg/dL (Negative); Leukocyte Esterase,Urine TR (Negative); Mucus,Urine 1+ /HPF; Nitrite,Urine NEG (Negative)
[2016-07-11] MEDS ORDERED: BABY ASPIRIN PO ONE (08:02)
--- NOTE | 2016-07-11 08:39 | XRay Report ---
PORTABLE CHEST: Chest pain An AP portable view of the chest demonstrates a normal cardiac contour considering the limits of this technique. The lungs are clear with no evidence of infiltrate, fluid or failure. No change compared to June 15, 2016. IMPRESSION: Normal portable chest.
[2016-07-11] MEDS ORDERED: NORMODYNE IV ONE (08:40)
--- NOTE | 2016-07-11 08:54 | Admit Criteria Form ---
Admission Criteria Documentation: CARDIOLOGY GRG Clinical Indications for Admission to Inpatient Care ( Place 'X' for any and all applicable criteria): Hospital admission is needed for appropriate care of the patient because of ANY ONE of the following (1): [ ] I. Hemodynamic instability as indicated by ALL of the following (1)(2)(3) (4)(5) [ ]a) Vital signs or other findings not as expected for chronic patient condition or baseline [ ]b) Instability indicated by ANY ONE of the following: [ ]i) Hypotension [ ]ii) Symptomatic Tachycardia unresponsive to treatment ( e.g., analgesia, fluids, sedation as indicated) [ ]iii) Inadequate perfusion indicated by ANY ONE of the following: [ ] 1) Lactic acidosis (> 2 mmol/L) [ ] 2) New abnormal capillary refill (> 3 seconds) [ ] 3) Reduced urine output [ ] 4) New altered mental status [ ]iv) Orthostatic vital sign changes unresponsive to treatment (e.g., fluids) [ ]v) IV inotropic or vasopressor medication required to maintain adequate blood pressure or perfusion [ ] II. Severe heart failure as indicated by ANY ONE of the following(17)(18) [ ]a) Respiratory distress [ ]b) Hypotension [ ]c) Anasarca (refractory to outpatient therapy) [ ]d) Cardiac arrhythmias of immediate concern [ ]e) Myocardial ischemia [ ] III. Cardiac arrhythmias or findings of immediate concern indicated by ANY ONE of the following (19)(20): [ ] a) Heart rhythms that are inherently dangerous or unstable indicated by ANY ONE of the following (21)(22)(23): [ ] i) Resuscitated ventricular fibrillation or cardiac arrest [ ] ii) Ventricular escape rhythm [ ] iii) Sustained ventricular tachycardia (30 seconds or more of ventricular rhythm at greater than 100 beats per minute) [ ] iv) Nonsustained ventricular tachycardia and ANY ONE of the following: [ ] 1) Suspected cardiac ischemia as cause or consequence of ventricular tachycardia [ ] 2) In setting of acute myocarditis [ ] b) Unstable cardiac conduction defects indicated by ANY ONE of the following(23)(24)(25) [ ] i) Type II second-degree atrioventricular block [ ]ii) Third-degree atrioventricular block [ ]iii) New-onset left bundle branch block with suspected myocardial ischemia [ ]c) Any heart rhythm and ANY ONE of the following (21)(22)(26)(27) (28) [ ] i) Continuous long-term ECG monitoring needed (e.g., initiation of drug requiring monitoring for more than 24 hours) [ ] ii) Patient has automatic implanted cardioverter defibrillator that is repeatedly firing, malfunctioning, or in need of immediate adjustment of settings beyond the scope of ambulatory or observation care [ ]d) Heart rhythms of concern due to ANY ONE of the following: [ ] i) Hypotension [ ] ii) Respiratory distress [ ] iii) Association with other significant symptoms (e.g., bradycardia with syncope or ongoing dizziness, supraventricular tachycardia with chest pain (14)(15)(17) [ ] IV. Monitoring for cardiac contusion beyond the scope of observation care needed [A](30)(31)(32) [ ] V. Surgical or device complication (e.g., valve replacement complication , pacemaker dysfunction) (35)(41)(44)(45)(46) [ ] . Inpatient palliative care needed. [B](49) Also use Inpatient Palliative Care Criteria [ ] VII. Nonbacterial thrombotic (marantic) endocarditis (36)(43)(47)(48) [X ] VIII. Cardiology condition, symptom, or finding for which emergency and observation care has failed or are not considered appropriate. [ ] IX. Acute valvular disease requiring inpatient as indicated by ANY ONE of the following (41) [ ]a) Acute valvular regurgitation (42) [ ]b) Noninfectious valvulitis (43) [ ]c) Obstructive valve thrombosis [ ]d) Paravalvular leak [ ]e) Other significant valvular disorder remaining after emergency or observation level of care (as appropriate) [ ]X. Pericardial disease requiring inpatient treatment as indicated by ANY ONE of the following (33)(34)(35)(36)(37) [ ]a) Suspected tamponade (38)(39)(40) [ ]b) Hemopericardium [ ]c) Other significant pericardial disorder remaining after emergency or observation level of care (as appropriate) [ ] XI. Cardiac ischemia beyond scope of emergency and observation care. [ ] XII. Hypertension requiring inpatient treatment as indicated by ANY ONE of the following (6)(7)(8) [ ]a) SBP greater than 220 mm Hg or DBP greater than 120 mmHg despite treatment [ ]b) SBP greater than 140 mm Hg or DBP greater than 100 mm Hg with evidence of acute end organ damage as indicated by ANY ONE of the following [ ] i) Altered mental status [ ] ii) Acute renal failure as indicated by new onset of ANY ONE of the following (9)(10)(11)(12)(13) [ ]1) 3-fold rise in serum creatinine from baseline [ ]2) Serum creatinine greater than 4 mg/dL ( 354 micromoles/L) with acute rise greater than 0.5 mg/dL (44.2 micromoles/L) [ ]3) Reduction of more than 75% in estimated glomerular filtration rate from baseline [ ]4) Estimated glomerular filtration rate less than 35 mL/min/1.73m2 (0.59 mL/sec/1.73m2) in child up to 18 years of age [ ]5) Cessation of urine output indicated by ALL of the following [ ]A. Adequate volume status [ ]B. Inadequate urine output as indicated by ANY ONE of the following [ ]a. Urine output less than 0.3 mL/kg/hr for 24 hours [ ]b. Anuria (urine output less than 0.1 mL/kg/hr) for 12 hours [ ] iii) Aortic dissection [ ] iv) Myocardial Ischemia [ ] v) Left ventricular heart failure [ ]vi) Retinal Hemorrhage [ ]vii) Other significant finding [ ]c) Hypertension in child requiring inpatient treatment as indicated by ALL of the following(14)(15)(16) [ ] i) Outpatient treatment not effective, not available, or not appropriate [ ]ii) SBP or DBP greater than 95th percentile for age [ ]iii) Evidence of acute end organ damage as indicated by ANY ONE of the following [ ]1) Altered mental status [ ]2) Acute renal failure as indicated by new onset of ANY ONE of the following(9)(10)(11)(12)(13) [ ]A. 3-fold rise in serum creatinine from baseline [ ]B. Serum creatinine greater than 4 mg/dL (354 micromoles/L) with acute rise greater than 0.5 mg/dL (44.2 micromoles/L) [ ]C. Reduction of more than 75% in estimated glomerular filtration rate from baseline [ ]D. Estimated glomerular filtration rate less than 35 mL/min/1.73m2 (0.59 mL/sec/1.73m2) in child up to 18 years of age [ ]E. Cessation of urine output indicated by ALL of the following [ ]a. Adequate volume status [ ]b. Inadequate urine output as indicated by ANY ONE of the following [ ]i) Urine output less than 0.3 mL/kg/hr for 24 hours [ ]ii) Anuria ( urine output less than 0.1 mL/kg/hr) for 12 hours [ ]3) Severe headache [ ]4) Visual disturbance [ ]5) Retinal hemorrhage [ ]6) Other significant finding [ ]XIII. Complications of transplanted heart indicated by ANY ONE of the following(61): [ ]a) Acute graft rejection requiring inpatient management (eg, intravenous immunosuppression)(62)(63) [ ]b) Acute graft heart failure indicated by ANY ONE of the following(64): [ ]i) Hemodynamic instability [ ]ii) Cardiac arrhythmias of immediate concern [ ]iii) Pulmonary edema that is very severe (eg, mechanical ventilation needed, imminent or likely, need for 100% oxygen to keep oxygen saturation above 90%) [ ]iv) Pulmonary edema that is persistent as indicated by ALL of the following: [ ]1) New need for oxygen therapy to keep oxygen saturation above 90% (or increased FiO2 need from baseline) [ ]2) Has not improved sufficiently with emergency department or observation care IV diuretics or other heart failure treatments[E] [ ]v) Altered mental status that is severe or persistent [ ]vi) Increased creatinine (new on laboratory test) with reduction of more than 50% in estimated glomerular filtration rate from baseline [ ]vii) Progressively (ongoing) rising creatinine (known from past laboratory test) with reduction of more than 25% in estimated glomerular filtration rate from baseline [ ]viii) Acute renal failure [ ]ix) Acute peripheral ischemia (eg, examination shows pulseless, cool, mottled, or cyanotic extremity) [ ]x) Pulmonary artery catheter monitoring needed [ ]xi) Other sign or symptom of heart failure requiring inpatient treatment (ie, too severe or not responsive to outpatient and observation care treatment) [ ]c) Infection requiring inpatient management (eg, Hemodynamic instability, need for intravenous antimicrobial treatment)(66)(67)(68)(69)(70) [ ]d) Cardiac allograft vasculopathy requiring inpatient management ( eg evidence of cardiac ischemia)(71) [ ]e) Other complication of transplanted heart (eg, stroke, severe pulmonary hypertension, severe valvular dysfunction) requiring inpatient management(72) The original [facility] [employer] content created by [facility] has been revised. The portions of the content which have been revised are identified through the use of italic text or in bold, and [facility] has neither reviewed nor approved the modified material. All other unmodified content is copyright [facility] [employer]. Please see references footnoted in the original [facility] [employer] edition 2016 Admission Criteria Met: Yes
[2016-07-11] MEDS ORDERED: PERCOCET 5/325 PO PRN (10:16)
[2016-07-11] MEDS ORDERED: APRESOLINE IV ONE (10:17)
[2016-07-11] MEDS ORDERED: BENADRYL IV ONE (10:17)
[2016-07-11] MEDS ORDERED: MILK OF MAGNESIA PO PRN (10:19)
[2016-07-11] MEDS ORDERED: TYLENOL PO PRN (10:19)
[2016-07-11] MEDS ORDERED: DULCOLAX PR PRN (10:19)
[2016-07-11] MEDS ORDERED: NORMODYNE IV PRN (10:24)
[2016-07-11] MEDS ORDERED: CARDENE 50 MG in NACL 0.9% 250ML 230 ML IV SCH (11:00)
[2016-07-11] MEDS ORDERED: PROCARDIA XL PO SCH (11:00)
[2016-07-11] MEDS: LEVAQUIN 500MG/100ML 500 MG/100 ML BAG IV SCH (11:30)
[2016-07-11] MEDS ORDERED: NACL 0.9% 1000 ML 1,000 ML ONE (11:35)
--- NOTE | 2016-07-11 11:35 | Consultation ---
History of Present Illness Consult date: 07/11/16 Requesting physician: SIMA BENNETT Consult reason: hypertension History of present illness: The pt is a 36YO female with a past medical history significant for recurrent syncope, HTN, seizures, bariatric surgery (initial surgery in 2013 with redo in 2014), and recurrent n/v (necessitated a PEG tube at one point). She has been seen by our practice on prior hospitalization but has not come for OP follow up. She presented from her PCP's office (Dr. Ocasio) with complaints of chest pain, n/v , and recurrent syncope. She reports she vomited throughout the day yesterday and thus was unable to take her BP meds. She describes her chest pain as a nonexertional, nonradiating, intermittent, midsternal, sharp pain. Pt also reports that she had a syncopal episode while grocery shopping yesterday, and that her syncopal episode was preceded by ringing in her ears and blurry vision (these symptoms usually occur prior to all of her syncopal episodes). She denies any aggravating or alleviating factors associated with her symptoms. Following arrival to ED, her BP increased to 190/147 and she was given 20mg IV hydralazine x 1 dose. On evaluation, her BP is 70s/40s and she is receiving NS bolus. Of note, pt underwent tilt table test at [facility] per Dr. Hope on 2016, which was positive for neurocardiogenic syncope. She was instructed to avoid dehydration and follow up with Dr. Hope. Echo 05/28/2016 demonstrated EF 50 - 55%, mild to moderate LVH, mild MR, mild TR; stress test 03/2016 negative for ischemia, EF 61%. Past History Past Medical History: hypertension, seizures, other (syncope; recurrent n/v) Past Surgical History: Other (weight loss surgery ) Social history: lives with family Medications and Allergies Allergies Allergy/AdvReac Type Severity Reaction Status Date / Time amoxicillin Allergy Anaphylaxis Verified 04/07/16 17:04 enalapril Allergy Anaphylaxis Verified 04/07/16 17:04 hydralazine Allergy Hives Verified 06/15/16 14:14 peach Allergy Unknown Verified 05/28/16 11:12 tramadol Allergy Rash Verified 07/10/16 21:31 ibuprofen AdvReac Unknown Verified 04/07/16 17:04 Home Medications Medication Instructions Recorded Confirmed Last Taken Type Ondansetron [Zofran TAB] 8 mg PO Q8HR PRN 06/15/16 07/11/16 Unknown History cloNIDine [Catapres] 0.6 mg PO BID 06/15/16 07/11/16 Unknown History levETIRAcetam [Keppra ORAL LIQ] 1,500 mg PO BID 06/15/16 07/11/16 Unknown History Pantoprazole [Protonix TAB] 80 mg PO QDAY #30 tablet 06/18/16 07/11/16 Unknown Rx Zolpidem [Ambien] 10 mg PO QHS #30 tablet 06/18/16 07/11/16 Unknown Rx oxyCODONE /ACETAMINOPHEN [Percocet 1 tab PO Q6H PRN #30 tablet 06/18/16 Unknown Rx 5/325 mg] Active Meds: Active Medications Acetaminophen (Tylenol) 650 mg PO Q4H PRN PRN Reason: Pain MILD(1-3)/Fever >100.5/PALACIOS Bisacodyl (Dulcolax) 10 mg [place] QDAY PRN PRN Reason: Constipation unrelieved by MOM Clonidine HCl (Catapres) 0.6 mg PO BID LELA Diphenhydramine HCl (Benadryl) 25 mg IV NOW ONE Stop: 07/11/16 10:18 Last Admin: 07/11/16 11:00 Dose: 25 mg Enoxaparin Sodium (Lovenox) 40 mg SUB-Q QDAY@2200 LELA Hydralazine HCl (Apresoline) 20 mg IV NOW ONE Stop: 07/11/16 10:18 Last Admin: 07/11/16 10:59 Dose: 20 mg Nicardipine HCl 50 mg/ Sodium (Chloride) 250 mls @ 25 mls/hr IV TITR LELA; 5 MG/ HR PRN Reason: Protocol Levofloxacin/Dextrose (Levaquin 500mg/100ml) 500 mg in 100 mls @ 100 mls/hr IV Q24HR LELA PRN Reason: Protocol Labetalol HCl (Normodyne) 20 mg IV Q4H PRN PRN Reason: BP> 160/100 Levetiracetam (Keppra) 1,500 mg PO BID LELA Magnesium Hydroxide (Milk Of Magnesia) 30 ml PO Q4H PRN PRN Reason: Constipation Nifedipine (Procardia Xl) 30 mg PO Q12HR [facility] Ondansetron HCl (Zofran) 4 mg IV Q8H PRN PRN Reason: N/V unrelieved by Reglan Oxycodone/Acetaminophen (Percocet 5/325) 1 tab PO Q6H PRN PRN Reason: Pain, Moderate (4-6) Pantoprazole Sodium (Protonix) 80 mg PO QDAY [facility] Zolpidem Tartrate (Ambien) 10 mg PO QHS [facility] Review of Systems Constitutional: no weight loss, no weight gain, no fever, no chills, no sweats Ears, nose, mouth and throat: no ear pain, no nose pain, no nasal congestion, no sinus pressure, no sinus pain Cardiovascular: chest pain, palpitations, syncope, lightheadedness, high blood pressure, no orthopnea, no rapid/irregular heart beat, no edema, no shortness of breath, no dyspnea on exertion, no leg edema Respiratory: no cough, no shortness of breath, no dyspnea on exertion, no congestion, no wheezing, no pain Gastrointestinal: nausea, vomiting, no abdominal pain, no diarrhea, no constipation Genitourinary Female: no pelvic pain, no flank pain, no menorrhagia, no dysuria , no urinary frequency Integumentary: no rash, no pruritis, no redness, no sores, no wounds Neurological: no paralysis, no weakness, no parathesias, no numbness, no tingling, no seizures, no syncope Endocrine: no cold intolerance, no heat intolerance Hematologic/Lymphatic: no easy bruising, no easy bleeding, no lymphadenopathy Allergic/Immunologic: no urticaria, no wheezing, no persistent infections Physical Examination Vital Signs Temp Pulse Resp BP Pulse Ox 99.6 F 112 H 14 174/139 100 07/10/16 21:31 07/10/16 21:31 07/10/16 21:31 07/10/16 21:31 07/10/16 21:31 General appearance: mild distress HEENT: Positive: PERRL, Normocephaly, Mucus Membranes Moist Neck: Positive: neck supple, trachea midline Cardiac: Positive: Reg Rate and Rhythm, S1/S2 Lungs: Positive: clear to auscultation Neuro: Positive: Grossly Intact Abdomen: Positive: Soft, Active Bowel Sounds Skin: Positive: Clear. Negative: Rash, Wound Musculoskeletal: No Fluid Collection, No Pain, Normal Range of Motion Extremities: Present: upper extr. pulses, lower extr. pulses. Absent: edema Results 07/10/16 21:54 07/10/16 21:54 - Imaging and Cardiology Echo: report reviewed EKG: report reviewed, image reviewed EKG interpretations - Telemetry EKG Rhythm: Sinus Tachycardia - EKG Sinus rhythms and dysrhythmias: sinus tachycardia Assessment and Plan Assessment: Accelerated HTN - now with hypotension Chest pain, atypical - in setting of accelerated HTN; ECG with NAF; troponin negative for AMI x 3 sets. Recurrent syncope - tilt table test 06/18/2016 positive for neurocardiogenic syncope. Recurrent n/v H/o bariatric surgery Plan: Admit to ICU. Cont telemetry. Hold all anti-hypertensive medications in setting of hypotension. Consider catapress patch if BPs improve. Consider resume home Coreg 12.5mg PO BID, and increase Losartan to 100mg daily, if necessary for BP optimization and if pt can tolerate PO intake. No indication for any further cardiac testing at this time. Assessment and plan reviewed with pt at bedside. The patient has been seen in conjunction with Dr. TIN Silva who agrees with the assessment and plan of care.
[2016-07-11] MEDS: ZOFRAN IV PRN ×2 (12:54→22:15)
[2016-07-11] MEDS: MORPHINE IV PRN ×3 (13:26→22:16)
--- NOTE | 2016-07-11 14:03 | History and Physical Report ---
History of Present Illness Date of examination: 07/11/16 Date of admission: 07/11/16 10:19 Chief complaint: chest pain History of present illness: 36-year-old -[place] female presented to the ER from her PCP's office with complaints of high blood pressure, chest pains 4 days, nausea and vomiting and shortness of breath 4 days. Patient described her chest pain as nonradiating, intermittent, midsternal, sharp pain that causes her difficulty to breathe during the episode of the pain. Patient reported she had generalized weakness and felt both legs gave out on her which causes her to fall. Pt also reported that she fell also reported that she is syncopal episode Yesterday, 07/10/16, after a syncopal episode in inside a grocery store. Upon arrival to the ED the patient's blood pressure 190/147 and continue to complain of chest pain. 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, seizure disorder, gastric bypass sleeve 2013 and revision 2014, Past History Past Medical History: hypertension, seizures, stroke, other (syncope; recurrent n/v) Past Surgical History: cholecystectomy, Other (sleve gastrectomy) Social history: lives with family Family history: hypertension Medications and Allergies Allergies Allergy/AdvReac Type Severity Reaction Status Date / Time amoxicillin Allergy Anaphylaxis Verified 04/07/16 17:04 enalapril Allergy Anaphylaxis Verified 04/07/16 17:04 hydralazine Allergy Hives Verified 06/15/16 14:14 peach Allergy Unknown Verified 05/28/16 11:12 tramadol Allergy Rash Verified 07/10/16 21:31 ibuprofen AdvReac Unknown Verified 04/07/16 17:04 Home Medications Medication Instructions Recorded Confirmed Last Taken Type Ondansetron [Zofran TAB] 8 mg PO Q8HR PRN 06/15/16 07/11/16 Unknown History levETIRAcetam [Keppra ORAL LIQ] 1,500 mg PO BID 06/15/16 07/11/16 Unknown History Pantoprazole [Protonix TAB] 80 mg PO QDAY #30 tablet 06/18/16 07/11/16 Unknown Rx Zolpidem [Ambien] 10 mg PO QHS #30 tablet 06/18/16 07/11/16 Unknown Rx oxyCODONE /ACETAMINOPHEN [Percocet 1 tab PO Q6H PRN #30 tablet 06/18/16 Unknown Rx 5/325 mg] Ciprofloxacin HCl [Ciprofloxacin 500 mg PO BID #6 tablet 07/12/16 Unknown Rx TAB] Famotidine [Pepcid] 20 mg PO BID #60 tablet 07/12/16 Unknown Rx Promethazine [Phenergan TAB] 25 mg PO Q6HR PRN #30 tab 07/12/16 Unknown Rx cloNIDine-TTS PATCH [Catapres-Tts 1 patch TD Q7D #4 patch 07/12/16 Unknown Rx Patch] Active Meds: Active Medications Acetaminophen (Tylenol) 650 mg PO Q4H PRN PRN Reason: Pain MILD(1-3)/Fever >100.5/PALACIOS Bisacodyl (Dulcolax) 10 mg [place] QDAY PRN PRN Reason: Constipation unrelieved by MOM Enoxaparin Sodium (Lovenox) 40 mg SUB-Q QDAY@2200 LELA Nicardipine HCl 50 mg/ Sodium (Chloride) 250 mls @ 25 mls/hr IV TITR LELA; 5 MG/ HR PRN Reason: Protocol Levofloxacin/Dextrose (Levaquin 500mg/100ml) 500 mg in 100 mls @ 100 mls/hr IV Q24HR LELA PRN Reason: Protocol Last Admin: 07/11/16 12:54 Dose: 100 mls/hr Levetiracetam (Keppra) 1,500 mg PO BID LELA Magnesium Hydroxide (Milk Of Magnesia) 30 ml PO Q4H PRN PRN Reason: Constipation Morphine Sulfate (Morphine) 2 mg IV Q4H PRN PRN Reason: Pain, Moderate (4-6) Last Admin: 07/11/16 13:26 Dose: 2 mg Ondansetron HCl (Zofran) 4 mg IV Q8H PRN PRN Reason: N/V unrelieved by Reglan Last Admin: 07/11/16 12:54 Dose: 4 mg Oxycodone/Acetaminophen (Percocet 5/325) 1 tab PO Q6H PRN PRN Reason: Pain, Moderate (4-6) Last Admin: 07/11/16 12:55 Dose: 1 tab Pantoprazole Sodium (Protonix) 80 mg PO QDAY LELA Zolpidem Tartrate (Ambien) 10 mg PO QHS [facility] Review of Systems All systems: negative Constitutional: fatigue, weakness Cardiovascular: chest pain Gastrointestinal: nausea, vomiting Neurological: syncope Exam - Constitutional Vitals: Temp Pulse Resp BP Pulse Ox 98.6 F 109 H 16 146/106 99 07/11/16 02:33 07/11/16 13:00 07/11/16 13:26 07/11/16 13:00 07/11/16 13:00 General appearance: Present: no acute distress, well-nourished - EENT Eyes: Present: PERRL ENT: hearing intact, clear oral mucosa - Neck Neck: Present: supple, normal ROM - Respiratory Respiratory effort: normal Respiratory: bilateral: CTA - Cardiovascular Heart Sounds: Present: S1 & S2. Absent: rub, click - Extremities Extremities: pulses symmetrical, No edema Peripheral Pulses: within normal limits - Abdominal General gastrointestinal: Present: soft, non-tender, non-distended, normal bowel sounds Female genitourinary: Present: normal - Integumentary Integumentary: Present: clear, warm, dry - Musculoskeletal Musculoskeletal: gait normal, strength equal bilaterally - Psychiatric Psychiatric: appropriate mood/affect, intact judgment & insight - Neurologic Neurologic: CNII-XII intact, moves all extremities Results - Labs CBC & Chem 7: 07/10/16 21:54 07/12/16 07:27 Labs: Laboratory Last Values WBC 10.4 K/mm3 (4.5-11.0) 07/10/16 21:54 RBC 4.36 M/mm3 (3.65-5.03) 07/10/16 21:54 Hgb 9.8 gm/dl (10.1-14.3) L 07/10/16 21:54 Hct 31.0 % (30.3-42.9) 07/10/16 21:54 MCV 71 fl (79-97) L 07/10/16 21:54 MCH 22 pg (28-32) L 07/10/16 21:54 MCHC 32 % (30-34) 07/10/16 21:54 RDW 30.0 % (13.2-15.2) H 07/10/16 21:54 Plt Count 409 K/mm3 (140-440) 07/10/16 21:54 Add Manual Diff Complete 07/10/16 21:54 Total Counted 100 07/10/16 21:54 Seg Neuts % (Manual) 79.0 % (40.0-70.0) H 07/10/16 21:54 Band Neutrophils % 4.0 % 07/10/16 21:54 Lymphocytes % (Manual) 11.0 % (13.4-35.0) L 07/10/16 21:54 Reactive Lymphs % (Man) 0 % 07/10/16 21:54 Monocytes % (Manual) 6.0 % (0.0-7.3) 07/10/16 21:54 Eosinophils % (Manual) 0 % (0.0-4.3) 07/10/16 21:54 Basophils % (Manual) 0 % (0.0-1.8) 07/10/16 21:54 Metamyelocytes % 0 % 07/10/16 21:54 Myelocytes % 0 % 07/10/16 21:54 Promyelocytes % 0 % 07/10/16 21:54 Blast Cells % 0 % 07/10/16 21:54 Nucleated RBC % Not Reportable 07/10/16 21:54 Seg Neutrophils # Man 8.2 K/mm3 (1.8-7.7) H 07/10/16 21:54 Band Neutrophils # 0.4 K/mm3 07/10/16 21:54 Lymphocytes # (Manual) 1.1 K/mm3 (1.2-5.4) L 07/10/16 21:54 Abs React Lymphs (Man) 0.0 K/mm3 07/10/16 21:54 Monocytes # (Manual) 0.6 K/mm3 (0.0-0.8) 07/10/16 21:54 Eosinophils # (Manual) 0.0 K/mm3 (0.0-0.4) 07/10/16 21:54 Basophils # (Manual) 0.0 K/mm3 (0.0-0.1) 07/10/16 21:54 Metamyelocytes # 0.0 K/mm3 07/10/16 21:54 Myelocytes # 0.0 K/mm3 07/10/16 21:54 Promyelocytes # 0.0 K/mm3 07/10/16 21:54 Blast Cells # 0.0 K/mm3 07/10/16 21:54 WBC Morphology Not Reportable 07/10/16 21:54 Hypersegmented Neuts Not Reportable 07/10/16 21:54 Hyposegmented Neuts Not Reportable 07/10/16 21:54 Hypogranular Neuts Not Reportable 07/10/16 21:54 Smudge Cells Not Reportable 07/10/16 21:54 Toxic Granulation Not Reportable 07/10/16 21:54 Toxic Vacuolation Not Reportable 07/10/16 21:54 Dohle Bodies Not Reportable 07/10/16 21:54 Pelger-Huet Anomaly Not Reportable 07/10/16 21:54 Charles Rods Not Reportable 07/10/16 21:54 Platelet Estimate Consistent w auto 07/10/16 21:54 Clumped Platelets Not Reportable 07/10/16 21:54 Plt Clumps, EDTA Not Reportable 07/10/16 21:54 Large Platelets Not Reportable 07/10/16 21:54 Giant Platelets Not Reportable 07/10/16 21:54 Platelet Satelliting Not Reportable 07/10/16 21:54 Plt Morphology Comment Not Reportable 07/10/16 21:54 RBC Morphology Not Reportable 07/10/16 21:54 Dimorphic RBCs Not Reportable 07/10/16 21:54 Polychromasia Not Reportable 07/10/16 21:54 Hypochromasia 1+ 07/10/16 21:54 Poikilocytosis Not Reportable 07/10/16 21:54 Anisocytosis 1+ 07/10/16 21:54 Microcytosis Not Reportable 07/10/16 21:54 Macrocytosis Not Reportable 07/10/16 21:54 Spherocytes Not Reportable 07/10/16 21:54 Pappenheimer Bodies Not Reportable 07/10/16 21:54 Sickle Cells Not Reportable 07/10/16 21:54 Target Cells Not Reportable 07/10/16 21:54 Tear Drop Cells Not Reportable 07/10/16 21:54 Ovalocytes Not Reportable 07/10/16 21:54 Helmet Cells Not Reportable 07/10/16 21:54 [place] Bodies Not Reportable 07/10/16 21:54 [place] Rings Not Reportable 07/10/16 21:54 Kelley Cells Not Reportable 07/10/16 21:54 Bite Cells Not Reportable 07/10/16 21:54 Crenated Cell Not Reportable 07/10/16 21:54 Elliptocytes 1+ 07/10/16 21:54 Acanthocytes (Spur) Not Reportable 07/10/16 21:54 Rouleaux Not Reportable 07/10/16 21:54 Hemoglobin C Crystals Not Reportable 07/10/16 21:54 Schistocytes Not Reportable 07/10/16 21:54 Malaria parasites Not Reportable 07/10/16 21:54 Pedro Luis Bodies Not Reportable 07/10/16 21:54 Hem Pathologist Commnt No 07/10/16 21:54 PT 13.0 Sec. (12.2-14.9) 07/10/16 21:54 INR 0.99 (0.87-1.13) 07/10/16 21:54 APTT 33.1 Sec. (24.2-36.6) 07/10/16 21:54 D-Dimer 374.65 ng/mlDDU (0-234) H 07/11/16 07:15 Sodium 135 mmol/L (137-145) L 07/10/16 21:54 Potassium 3.8 mmol/L (3.6-5.0) 07/10/16 21:54 Chloride 95.6 mmol/L (98-107) L 07/10/16 21:54 Carbon Dioxide 26 mmol/L (22-30) 07/10/16 21:54 Anion Gap 17 mmol/L 07/10/16 21:54 BUN 19 mg/dL (7-17) H 07/10/16 21:54 Creatinine 1.0 mg/dL (0.7-1.2) 07/10/16 21:54 Estimated GFR > 60 ml/min 07/10/16 21:54 BUN/Creatinine Ratio 19.00 % 07/10/16 21:54 Glucose 98 mg/dL (65-100) 07/10/16 21:54 Calcium 8.9 mg/dL (8.4-10.2) 07/10/16 21:54 Troponin T < 0.010 ng/mL (0.00-0.029) 07/11/16 04:27 Urine Color Yellow (Yellow) 07/11/16 06:26 Urine Turbidity Cloudy (Clear) 07/11/16 06:26 Urine pH 5.0 (5.0-7.0) 07/11/16 06:26 Ur Specific [place] 1.023 (1.003-1.030) 07/11/16 06:26 Urine Protein 30 mg/dl mg/dL (Negative) 07/11/16 06:26 Urine Glucose (UA) Neg mg/dL (Negative) 07/11/16 06:26 Urine Ketones Tr mg/dL (Negative) 07/11/16 06:26 Urine Blood Neg (Negative) 07/11/16 06:26 Urine Nitrite Neg (Negative) 07/11/16 06:26 Ur Reducing Substances Not Reportable 07/11/16 06:26 Urine Bilirubin Neg (Negative) 07/11/16 06:26 Urine Ictotest Not Reportable 07/11/16 06:26 Urine Urobilinogen 4.0 mg/dL (<2.0) 07/11/16 06:26 Ur Leukocyte Esterase Tr (Negative) 07/11/16 06:26 Urine WBC (Auto) 17.0 /HPF (0.0-6.0) H 07/11/16 06:26 Urine RBC (Auto) 30.0 /HPF (0.0-6.0) 07/11/16 06:26 U Epithel Cells (Auto) 5.0 /HPF (0-13.0) 07/11/16 06:26 Urine Bacteria (Auto) 2+ /HPF (Negative) 07/11/16 06:26 Urine Mucus 1+ /HPF 07/11/16 06:26 Urine HCG, Qual Negative (Negative) 07/11/16 06:26 - Imaging and Cardiology EKG: image reviewed (Sinus rythym, no acute ST changes) Chest x-ray: image reviewed (wnl) CT Scan - head: image reviewed (no acute changes) Assessment and Plan Assessment and plan: 36-year-old -[place]aysian female, w pmh of malignant htn, hx of previous CVA- mild left hemiparesis, presented to the ER from her PCP's office with complaints of high blood pressure, chest pains 4 days, nausea and vomiting and shortness of breath 4 days. Has recent negative stress test in 03/2016,. Echo done 05/28/16 reported EF 50-55% . Carotid Doppler study 05/28/16 reported No significant findings noted. 1. Malignant Hypertensive-CT of the head no acute findings, only old lacunar infract left thalamus noted. Continue with antihypertensive medications start nicardipine drip and admitted to ICU frequent BP checks and neurochecks Highly question her adherence with her medications, patient has been counseled Cardiology consulted 2. Chest pain-troponin series negative has recent negative stress test and echo D-dimer positive, obtain VQ scan 3. UTI-continue antibiotics empirically, fup urine cx 4. seizure disorder - continue Keppra, PO, BID 5. Autonomic Imbalance likely due to hypertensive emergency, CT wn, has had recent carotid dopplers rx underlying cause as highlighted in #1 DVT prophylaxis-SCDs ordered Critical Care time 32 minutes Advance Directives: No (Full code) VTE prophylaxis?: Mechanical Contraindication Mechanical VTE Prophylaxis: Contraindicated (Pt on ASA) Plan of care discussed with patient/family: Yes
--- NOTE | 2016-07-11 14:30 | Nuclear Medicine Report ---
LUNG SCAN, VENTILATION AND PERFUSION: Chest pain. Inhalation of Xenon gas demonstrates a normal distribution of the activity throughout both lungs. The wash out phases show no focal retention of activity. After injection of Technetium 99m macroaggregated albumin gamma camera imaging of the lungs in multiple projections demonstrates normal pulmonary contours with a homogeneous distribution of activity. No focal areas of perfusion deficiency are identified. IMPRESSION: Normal study.
[2016-07-11] MEDS ORDERED: CATAPRES PO SCH (22:00)
[2016-07-11] MEDS: KEPPRA PO SCH (22:00)
[2016-07-11] MEDS: AMBIEN PO SCH (22:01)
[2016-07-11] MEDS: LOVENOX SUB-Q SCH (22:01)
[2016-07-12] MEDS: MORPHINE IV PRN ×4 (05:19→21:39)
[2016-07-12] MEDS ORDERED: CATAPRES PO SCH ×2 (08:00→22:00)
[2016-07-12] MEDS: ZOFRAN IV PRN ×2 (08:44→21:39)
--- NOTE | 2016-07-12 08:56 | Discharge Summary ---
Providers - Providers Date of Admission: 07/11/16 10:19 Date of discharge: 07/12/16 Attending physician: GINA SCOTT Primary care physician: JOSE MEZA Hospitalization Condition: Fair Disposition: DISCHARGED TO HOME OR SELFCARE - Discharge Diagnoses (1) Accelerated hypertension Status: Acute (2) Gastritis Status: Acute Qualifiers: Gastritis type: G Chronicity: C Gastritis bleeding: G (3) GERD (gastroesophageal reflux disease) Status: Acute Qualifiers: Esophagitis presence: E (4) Syncope Status: Acute Qualifiers: Syncope type: S Encounter type: E Core Measure Documentation - Palliative Care Palliative Care/ Comfort Measures: Not Applicable - Core Measures Any of the following diagnoses?: none Exam - Constitutional Vitals: Temp Pulse Resp BP Pulse Ox 98.2 F 96 H 20 140/98 98 07/12/16 04:00 07/12/16 04:00 07/12/16 04:00 07/12/16 04:00 07/12/16 04:00 Plan Activity: no restrictions Diet: low fat, low cholesterol, low salt Additional Instructions: 1.Follow up with PCP, Dr. Jose Meza in 1 week Follow up with: JOSE MEZA MD [Primary Care Provider] - 3-5 Days Prescriptions: Ciprofloxacin HCl [Ciprofloxacin TAB] 500 mg PO BID #6 tablet Famotidine [Pepcid] 20 mg PO BID #60 tablet Metoclopramide HCl [Reglan TAB] 5 mg PO TIDAC PRN #30 tablet PRN Reason: nausea or vomiting
[2016-07-12 09:05] LABS: Anion Gap 13 mmol/L; BUN/Creatinine Ratio 27.14; Blood Urea Nitrogen 19 mg/dL (7-17); Calcium 8.4 mg/dL (8.4-10.2); Carbon Dioxide 25 mmol/L (22-30); Chloride 105.9 mmol/L (98-107); Glucose 87 mg/dL (65-100); Potassium 4.1 mmol/L (3.6-5.0); Sodium 140 mmol/L (137-145)
[2016-07-12] MEDS: LEVAQUIN 500MG/100ML 500 MG/100 ML BAG IV SCH (09:28)
[2016-07-12] MEDS: PROTONIX PO SCH (09:29)
[2016-07-12] MEDS: KEPPRA PO SCH ×2 (09:30→21:38)
[2016-07-12] MEDS ORDERED: CATAPRES-TTS PATCH TD SCH (10:00)
[2016-07-12] MEDS ORDERED: CATAPRES PO STA (13:49)
[2016-07-12] MEDS ORDERED: APRESOLINE IV STA (14:42)
--- NOTE | 2016-07-12 15:48 | Progress Note ---
Assessment and Plan Assessment and plan: Malignant hypertension. BP still elevated. She is on Clonidine bid. Will add Norvasc. GERD. On Protonix Seizure disorder. On Keppra Nausea and vomiting. On Zofran iv prn Syncope is vasovagal. She was seen by Cmm Technician. DVT prophylaxis with Lovenox. Full code status - Patient Problems (1) Accelerated hypertension Status: Acute (2) Gastritis Status: Acute Qualifiers: Gastritis type: G Chronicity: C Gastritis bleeding: G (3) GERD (gastroesophageal reflux disease) Status: Acute Qualifiers: Esophagitis presence: E (4) Syncope Status: Acute Qualifiers: Syncope type: S Encounter type: E History Interval history: BP still elevated, nausea and vomiting improving Hospitalist Physical - Constitutional Vitals: Temp Pulse Resp BP Pulse Ox 98.4 F 94 H 14 186/122 81 L 07/12/16 10:19 07/12/16 14:04 07/12/16 10:19 07/12/16 14:04 07/12/16 10:19 General appearance: Present: mild distress - EENT Eyes: Present: PERRL ENT: hearing intact - Neck Neck: Present: supple, normal ROM - Respiratory Respiratory effort: normal Respiratory: bilateral: CTA - Cardiovascular Rhythm: regular Heart Sounds: Present: S1 & S2 - Extremities Extremities: no ischemia, No edema, normal temperature, normal color - Abdominal General gastrointestinal: soft, non-tender, non-distended, normal bowel sounds - Integumentary Integumentary: Present: clear, warm, dry - Psychiatric Psychiatric: appropriate mood/affect, intact judgment & insight - Neurologic Neurologic: moves all extremities, other (AAO x 3) Results - Labs CBC & Chem 7: 07/10/16 21:54 07/12/16 07:27 Labs: Laboratory Last Values WBC 10.4 K/mm3 (4.5-11.0) 07/10/16 21:54 RBC 4.36 M/mm3 (3.65-5.03) 07/10/16 21:54 Hgb 9.8 gm/dl (10.1-14.3) L 07/10/16 21:54 Hct 31.0 % (30.3-42.9) 07/10/16 21:54 MCV 71 fl (79-97) L 07/10/16 21:54 MCH 22 pg (28-32) L 07/10/16 21:54 MCHC 32 % (30-34) 07/10/16 21:54 RDW 30.0 % (13.2-15.2) H 07/10/16 21:54 Plt Count 409 K/mm3 (140-440) 07/10/16 21:54 Add Manual Diff Complete 07/10/16 21:54 Total Counted 100 07/10/16 21:54 Seg Neuts % (Manual) 79.0 % (40.0-70.0) H 07/10/16 21:54 Band Neutrophils % 4.0 % 07/10/16 21:54 Lymphocytes % (Manual) 11.0 % (13.4-35.0) L 07/10/16 21:54 Reactive Lymphs % (Man) 0 % 07/10/16 21:54 Monocytes % (Manual) 6.0 % (0.0-7.3) 07/10/16 21:54 Eosinophils % (Manual) 0 % (0.0-4.3) 07/10/16 21:54 Basophils % (Manual) 0 % (0.0-1.8) 07/10/16 21:54 Metamyelocytes % 0 % 07/10/16 21:54 Myelocytes % 0 % 07/10/16 21:54 Promyelocytes % 0 % 07/10/16 21:54 Blast Cells % 0 % 07/10/16 21:54 Nucleated RBC % Not Reportable 07/10/16 21:54 Seg Neutrophils # Man 8.2 K/mm3 (1.8-7.7) H 07/10/16 21:54 Band Neutrophils # 0.4 K/mm3 07/10/16 21:54 Lymphocytes # (Manual) 1.1 K/mm3 (1.2-5.4) L 07/10/16 21:54 Abs React Lymphs (Man) 0.0 K/mm3 07/10/16 21:54 Monocytes # (Manual) 0.6 K/mm3 (0.0-0.8) 07/10/16 21:54 Eosinophils # (Manual) 0.0 K/mm3 (0.0-0.4) 07/10/16 21:54 Basophils # (Manual) 0.0 K/mm3 (0.0-0.1) 07/10/16 21:54 Metamyelocytes # 0.0 K/mm3 07/10/16 21:54 Myelocytes # 0.0 K/mm3 07/10/16 21:54 Promyelocytes # 0.0 K/mm3 07/10/16 21:54 Blast Cells # 0.0 K/mm3 07/10/16 21:54 WBC Morphology Not Reportable 07/10/16 21:54 Hypersegmented Neuts Not Reportable 07/10/16 21:54 Hyposegmented Neuts Not Reportable 07/10/16 21:54 Hypogranular Neuts Not Reportable 07/10/16 21:54 Smudge Cells Not Reportable 07/10/16 21:54 Toxic Granulation Not Reportable 07/10/16 21:54 Toxic Vacuolation Not Reportable 07/10/16 21:54 Dohle Bodies Not Reportable 07/10/16 21:54 Pelger-Huet Anomaly Not Reportable 07/10/16 21:54 Charles Rods Not Reportable 07/10/16 21:54 Platelet Estimate Consistent w auto 07/10/16 21:54 Clumped Platelets Not Reportable 07/10/16 21:54 Plt Clumps, EDTA Not Reportable 07/10/16 21:54 Large Platelets Not Reportable 07/10/16 21:54 Giant Platelets Not Reportable 07/10/16 21:54 Platelet Satelliting Not Reportable 07/10/16 21:54 Plt Morphology Comment Not Reportable 07/10/16 21:54 RBC Morphology Not Reportable 07/10/16 21:54 Dimorphic RBCs Not Reportable 07/10/16 21:54 Polychromasia Not Reportable 07/10/16 21:54 Hypochromasia 1+ 07/10/16 21:54 Poikilocytosis Not Reportable 07/10/16 21:54 Anisocytosis 1+ 07/10/16 21:54 Microcytosis Not Reportable 07/10/16 21:54 Macrocytosis Not Reportable 07/10/16 21:54 Spherocytes Not Reportable 07/10/16 21:54 Pappenheimer Bodies Not Reportable 07/10/16 21:54 Sickle Cells Not Reportable 07/10/16 21:54 Target Cells Not Reportable 07/10/16 21:54 Tear Drop Cells Not Reportable 07/10/16 21:54 Ovalocytes Not Reportable 07/10/16 21:54 Helmet Cells Not Reportable 07/10/16 21:54 [place] Bodies Not Reportable 07/10/16 21:54 [place] Rings Not Reportable 07/10/16 21:54 [place] Cells Not Reportable 07/10/16 21:54 Bite Cells Not Reportable 07/10/16 21:54 Crenated Cell Not Reportable 07/10/16 21:54 Elliptocytes 1+ 07/10/16 21:54 Acanthocytes (Spur) Not Reportable 07/10/16 21:54 Rouleaux Not Reportable 07/10/16 21:54 Hemoglobin C Crystals Not Reportable 07/10/16 21:54 Schistocytes Not Reportable 07/10/16 21:54 Malaria parasites Not Reportable 07/10/16 21:54 [place] Bodies Not Reportable 07/10/16 21:54 Hem Pathologist Commnt No 07/10/16 21:54 PT 13.0 Sec. (12.2-14.9) 07/10/16 21:54 INR 0.99 (0.87-1.13) 07/10/16 21:54 APTT 33.1 Sec. (24.2-36.6) 07/10/16 21:54 D-Dimer 374.65 ng/mlDDU (0-234) H 07/11/16 07:15 Sodium 140 mmol/L (137-145) 07/12/16 07:27 Potassium 4.1 mmol/L (3.6-5.0) 07/12/16 07:27 Chloride 105.9 mmol/L (98-107) 07/12/16 07:27 Carbon Dioxide 25 mmol/L (22-30) 07/12/16 07:27 Anion Gap 13 mmol/L 07/12/16 07:27 BUN 19 mg/dL (7-17) H 07/12/16 07:27 Creatinine 0.7 mg/dL (0.7-1.2) 07/12/16 07:27 Estimated GFR > 60 ml/min 07/12/16 07:27 BUN/Creatinine Ratio 27.14 % 07/12/16 07:27 Glucose 87 mg/dL (65-100) 07/12/16 07:27 Calcium 8.4 mg/dL (8.4-10.2) 07/12/16 07:27 Troponin T < 0.010 ng/mL (0.00-0.029) 07/11/16 04:27 Urine Color Yellow (Yellow) 07/11/16 06:26 Urine Turbidity Cloudy (Clear) 07/11/16 06:26 Urine pH 5.0 (5.0-7.0) 07/11/16 06:26 Ur Specific [place] 1.023 (1.003-1.030) 07/11/16 06:26 Urine Protein 30 mg/dl mg/dL (Negative) 07/11/16 06:26 Urine Glucose (UA) Neg mg/dL (Negative) 07/11/16 06:26 Urine Ketones Tr mg/dL (Negative) 07/11/16 06:26 Urine Blood Neg (Negative) 07/11/16 06:26 Urine Nitrite Neg (Negative) 07/11/16 06:26 Ur Reducing Substances Not Reportable 07/11/16 06:26 Urine Bilirubin Neg (Negative) 07/11/16 06:26 Urine Ictotest Not Reportable 07/11/16 06:26 Urine Urobilinogen 4.0 mg/dL (<2.0) 07/11/16 06:26 Ur Leukocyte Esterase Tr (Negative) 07/11/16 06:26 Urine WBC (Auto) 17.0 /HPF (0.0-6.0) H 07/11/16 06:26 Urine RBC (Auto) 30.0 /HPF (0.0-6.0) 07/11/16 06:26 U Epithel Cells (Auto) 5.0 /HPF (0-13.0) 07/11/16 06:26 Urine Bacteria (Auto) 2+ /HPF (Negative) 07/11/16 06:26 Urine Mucus 1+ /HPF 07/11/16 06:26 Urine HCG, Qual Negative (Negative) 07/11/16 06:26
[2016-07-12] MEDS ORDERED: BENADRYL IV ONE (15:52)
[2016-07-12] MEDS ORDERED: NORVASC PO SCH (16:00)
[2016-07-12] MEDS: CATAPRES PO SCH (21:37)
[2016-07-12] MEDS: LOVENOX SUB-Q SCH (21:38)
[2016-07-12] MEDS: AMBIEN PO SCH (21:43)
[2016-07-12] MEDS: REGLAN IV PRN (23:32)
[2016-07-13] MEDS ORDERED: NORVASC PO SCH (06:00)
[2016-07-13] MEDS: ZOFRAN IV PRN (08:19)
[2016-07-13] MEDS: REGLAN IV PRN (08:32)
[2016-07-13] MEDS: PROTONIX PO SCH (09:31)
[2016-07-13] MEDS: KEPPRA PO SCH (09:32)
[2016-07-13] MEDS: CATAPRES PO SCH (09:33)
[2016-07-13] MEDS: MORPHINE IV PRN (09:47)
--- NOTE | 2016-07-13 09:57 | Event Note ---
Date: 07/13/16 Patient did not go yesterday because BP high. She was seen and examined. Will go home today if BP controlled.
[2016-07-13] MEDS ORDERED: LEVAQUIN PO SCH (10:00)
[2016-07-13 14:27] VITALS: BP 102/64
== END 2016-07-13 15:45 | disposition home or self-care (01) | DRG 305 ==
LOC: ED 21:12 → CC1 07-11 10:19 → 4A 07-11 13:53
PROVIDERS: ADMIT Internal Medicine; ATTEND Internal Medicine
DX: I10 Essential (primary) hypertension (principal); N39.0 Urinary tract infection, site not specified; K21.9 Gastro-esophageal reflux disease without esophagitis; K29.00 Acute gastritis without bleeding; R55 Syncope and collapse; R07.9 Chest pain, unspecified; G40.909 Epilepsy, unspecified, not intractable, without status epilepticus; G90.8 Other disorders of autonomic nervous system; Z86.73 Personal history of transient ischemic attack (TIA), and cerebral infarction without residual deficits; Z88.1 Allergy status to other antibiotic agents; Z90.49 Acquired absence of other specified parts of digestive tract; Z98.84 Bariatric surgery status; Z82.49 Family history of ischemic heart disease and other diseases of the circulatory system
CPT/HCPCS: 36415; 70450; 71010; 78582; 80048; 81001; 81025; 84484; 85007; 85025; 85379; 85610; 85730; 87086; 93005; 93010; 96361; 96374; 96375; A9540; A9558; J0360; J1200; J1650; J1956; J2270; J2405; J2765; J7030